=== PATIENT | male | born 1955 | race Caucasian/White ===

== ENCOUNTER → 2016-07-13 | Outpatient (CLI) | payer BC | END | disposition home or self-care (01) | LOC: C.LABBFT 12:43 | PROVIDERS: ATTEND Internal Medicine | DX: Z11.59 Encounter for screening for other viral diseases (principal) ==

== ENCOUNTER 2018-05-10 11:32 | Inpatient (IN) ==
--- NOTE | 2018-05-01 16:35 | PAT Medication Instructions ---
Medication Instructions Date of Service May 01, 2018 Home Medications loratadine 10 mg PO DAILY PRN DO NOT take the morning of surgery loratadine 10 mg PO DAILY PRN Other Notes If you have any questions please call us at [phone] or [phone] or [phone] or [phone]
--- NOTE | 2018-05-02 09:14 | Anesthesiology Consultation ---
Date of Service May 02, 2018 Assessment & Plan (1) Encounter for pre-operative examination: Preop EKG done 05/02/18 at [facility] unconfirmed. Will need to review confirmed EKG AM DOS. Chart Review Chart Review: Acceptable Risk for Surgery and Patient seen in Pre Admission Testing Teaching & Discussion Pre-Anesthesia Teaching/Discussion Notes: Instructed NPO after midnight before surgery,except medications with 15 cc of water. Medication instructions provided according to the PAT guidelines. History Surgery Operation Date: 05/10/18 09:15 Proposed Procedures p Endobronchial Ultrasound, - Ciaran Hyde MD, FACS s Navigational Bronchoscopy with Biopsies - Ciaran Hyde MD, FACS Height/Weight Height: 5 ft 11.5 in Weight: 71.6 kg Allergies Allergy/AdvReac Type Severity Reaction Status Date / Time No Known Allergies Allergy Verified 05/01/18 10:49 Medications Home Medications Medication Instructions Recorded Confirmed Last Taken loratadine 10 mg PO DAILY PRN 05/01/18 05/01/18 Unknown Past Medical History Medical History Ascending aorta dilation "STABLE, MILD" PER 04/[address] Cavitary lung disease Past Surgical History Surgical History History of appendectomy History of tonsillectomy Past Anesthesia History No Hx of Anesthesia Complications and No Family Hx of Anesthesia Complications History of PONV No Motion Sickness Screening History of Motion Sickness: Yes (OCCASIONAL) Social History Smoking Status: Never smoker Do You Dip or Chew Tobacco: No Hx Alcohol Use: Yes alcohol intake frequency: holidays/special occasions only Alcohol Intake Frequency Comment: RARE SOCIAL DRINK Hx Substance Use: No substance use type: does not use Exercise / Class Metabolic Activity II 4-5 Yardwork/Stairs/Walk up hill Review of Systems Prior coughing/congestion not giving patient current issues. Patient denies chest pain, shortness of breath, dyspnea on exertion, wheezing, palpitations. Physical Exam Vital Signs VITALS BP 127/84 P 78 TEMP 97.8 SP02 98%RA RESP 16 PHYSICAL Full neck and c-spine range of motion. Full TMJ range of motion. TMD 3 finger breaths Mallampati Score 2 Dentition: several missing sides/ molars Lungs: clear throughout to auscultation Cardiac: regular rate and rhythm, no murmurs noted Spine: normal Carotid arteries: negative bruit Extremities: no edema Testing Electrocardiogram Date: 05/02/18 Findings: + NSR @ (66 (unconfirmed report)) Other Testing Chest CT= 04/18/18= Tree-in-bud nodules scattered throughout the lungs with multiple cavitary nodules, including a 1.9 x 1.2 cm right apical cavitary nodule. This nodule has slightly decreased in size since CT of March 01, 2018. The majority of nodules are unchanged while a few have improved and at least one has developed. Overall, the appearance favors an infectious or inflammatory process such as atypical mycobacterial infection. Fungal infection, vasculitis or rheumatoid nodules are within the differential but considered less likely. A neoplastic process is also considered less likely but cannot be completely excluded. Interval improvement in mediastinal lymphadenopathy. Stable mild dilatation of the ascending aorta. Laboratory Results 05/02/18 09:16 05/02/18 09:16
[2018-05-02 11:00] LABS: Basophils # (auto) 0.02 K/uL (0-0.2); Basophils % (auto) 0.3 %; Eosinophils # (auto) 0.14 K/uL (0-0.5); Eosinophils % (auto) 2.2 %; Hematocrit (blood only) 45.6 % (42-52); Hemoglobin 15.2 g/dL (14.0-18.0); Immature Granulocytes # (auto) 0.01 K/uL (0.00-0.02); Immature Granulocytes % (auto) 0.2 %; Lymphocytes # (auto) 1.55 K/uL (1.2-3.4); Lymphocytes % (auto) 24.1 %; Mean Corpuscular Hgb Conc 33.3 g/dL (32-36); Mean Corpuscular Volume 89.1 fL (80-100); Mean Platelet Volume 10.2 fL (7.4-10.4); Monocytes # (auto) 0.57 K/uL (0.11-0.59); Monocytes % (auto) 8.9 %; Neutrophils # (auto) 4.15 K/uL (1.4-6.5); Neutrophils % (auto) 64.3 %; Platelet Count 216 K/uL (130-400); RDW Coefficient of Variation 13.5 % (11.5-14.5); RDW Standard Deviation 44.1 fL (36.4-46.3); Red Blood Count 5.12 M/uL (4.7-6.1); White Blood Count 6.44 K/uL (4.8-10.8)
[2018-05-02 11:15] LABS: BUN Creatinine Ratio 19.2 (10-20); Calcium 9.2 mg/dl (8.5-10.1); Creatinine Clr Calc Pharmacy 103.5 ml/min; Est GFR (African American) 113.8; Est GFR (Non-African American) 98.2; Potassium 4.1 mmol/L (3.5-5.1)
[~2018-05-10 11:32] MED LIST: LR 15ML/HR IV SCH
[2018-05-10] MEDS ORDERED: MIDAZOLAM HCL 1 MG/ML 2ML VIAL ONE (12:57)
[2018-05-10] MEDS ORDERED: fentaNYL citrate 100 MCG/2 ML VIAL ONE (12:58)
--- NOTE | 2018-05-10 13:59 | History & Physical Bridge Note ---
Date of Service May 10, 2018 History & Physical Bridge Note I have examined the patient, reviewed the History & Physical and in the interval since the performance of the History & Physical I have noted the following changes of clinical significance: no changes noted
[2018-05-10] MEDS ORDERED: ATROPINE SULFATE 0.1 MG/ML 10ML SYR IV PRN (14:01)
[2018-05-10] MEDS ORDERED: fentaNYL citrate 100 MCG/2 ML VIAL IV PRN (14:01)
[2018-05-10] MEDS ORDERED: ePHEDrine sulfate 50 MG/ML AMP IV PRN (14:01)
[2018-05-10] MEDS ORDERED: HYDROmorphone INJ 2 MG/ML SYR/VIAL IV PRN (14:01)
[2018-05-10] MEDS ORDERED: LIDOCAINE HCL 2% 2 ML VIAL/AMP(20MG/ML) INFIL ONE (14:18)
[2018-05-10] MEDS ORDERED: PROPOFOL IV EMULSION 10 MG/ML 20 ML VIAL IV ONE (14:18)
[2018-05-10] MEDS ORDERED: SUCCINYLCHOLINE CHLORIDE 20 MG/ML 10 ML VIAL ONE (14:18)
[2018-05-10] MEDS ORDERED: DEXAMETHASONE SOD INJ 4 MG/ML VIAL ONE (14:54)
[2018-05-10] MEDS ORDERED: ONDANSETRON INJ 2 MG/ML 2 ML VIAL ONE ×2 (14:54→18:11)
[2018-05-10] MEDS ORDERED: PHENYLEPHRINE HCL 10 MG/ML VIAL ONE (14:54)
[2018-05-10] MEDS ORDERED: CEFAZOLIN 2000MG 2,000 MG/15 ML SYR IV SCH (15:00)
--- NOTE | 2018-05-10 15:26 | Post Operative Brief Note ---
Immediate Post Op Note v1 Date of Surgery May 10, 2018 Pre & Post Diagnosis Operation Date: 05/10/18 12:25 Pre-Op Diagnosis: Cavitary Lesion Right Lung, Mediastinal Adenopathy Post-Op Diagnosis: Cavitary Lesion Right Lung, Mediastinal Adenopathy Procedure Operation Date: 05/10/18 12:25 Actual Procedures p Endobronchial Ultrasound,(Not Applicable) - Ciaran Hyde MD, FACS s Navigational Bronchoscopy with Biopsies(Not Applicable) - Ciaran Hyde MD, FACS Surgeon Ciaran Hyde MD, FACS [employer] Operator Jason Estimated Blood Loss 2 Findings Consistent with Post-Op Diagnosis
[2018-05-10] MEDS ORDERED: CEFAZOLIN 250 MG/ML 1 GM VIAL ONE (15:52)
--- NOTE | 2018-05-10 16:06 | XRay Report ---
XR chest 1V portable HISTORY: Status post bronchoscopy. COMPARISON: Chest 02/13/2018. FINDINGS: The small left pneumothorax. This demonstrates a maximum pleural gap of 2 cm. No right-side d pneumothorax. Scattered nodular densities most pronounced within the right upper lobe persist. The heart is normal in size. No pleural effusions. IMPRESSION: There is a new small left pneumothorax. This finding was called/faxed to the referring physician foll owing dictation. Electronically signed by: Ramon Kline M.D. 05/10/2018 4:05 PM
--- NOTE | 2018-05-10 16:42 | Anesthesiology Progress Note ---
Date of Service May 10, 2018 Anesthesia Post Procedure Vital Signs Vital Signs: Temp Pulse Pulse Resp BP BP Pulse Ox 05/10/18 16:35 36.4 C L 84 19 125/86 92 05/10/18 16:26 86 25 H 106/85 89 L 05/10/18 16:25 90 22 96 05/10/18 16:20 81 25 H 137/94 89 L 05/10/18 16:16 86 16 146/85 H 90 05/10/18 16:15 88 13 92 05/10/18 16:12 36.6 C 88 18 146/85 H 95 05/10/18 16:10 80 26 H 95/83 L 90 05/10/18 16:06 77 27 H 104/81 93 05/10/18 16:05 74 24 96 05/10/18 16:02 70 26 H 97 05/10/18 16:01 75 19 118/87 98 05/10/18 16:00 71 28 H 99 05/10/18 15:56 79 21 136/91 100 05/10/18 15:55 80 29 H 100 05/10/18 15:50 65 17 109/70 99 05/10/18 15:48 61 16 101/67 100 05/10/18 15:47 36.3 C L 61 61 16 101/67 101/67 101 H 05/10/18 15:45 61 19 100 05/10/18 11:57 36.3 C L 76 18 137/92 98 Notes Mental Status: alert / awake / arousable Patient Amnestic to Procedure: Yes Nausea / Vomiting: adequately controlled Pain: adequately controlled Airway Patency, RR, SpO2: stable & adequate BP & HR: stable & adequate Hydration State: stable & adequate Anesthetic Complications: no major complications apparent
[2018-05-10] MEDS ORDERED: LIDOCAINE HCL 1% 20 ML VIAL ONE (17:41)
--- NOTE | 2018-05-10 17:41 | XRay Report ---
XR chest 1V portable HISTORY: 62 years-old Male post op, constant cough acute cough with recent surgery of the left chest COMPARISON: Chest radiograph of same day at 3:50 PM TECHNIQUE: AP view of the chest FINDINGS: Moderate left-sided pneumothorax is increased in size from comparison, now with pleural separation la terally measuring up to 2.8 cm and at the apex measuring up to 2.9 cm, previously 1.7 cm. Cardiomedia stinal and hilar silhouettes are unchanged. Minimal bibasilar densities suggest probable atelectasis. Degenerative changes of the shoulders and spine. IMPRESSION: Moderate sized left pneumothorax has increased in size from comparison. The above report was generated using voice recognition software. It may contain grammatical, syntax o r spelling errors. Electronically signed by: Kain Carpenter M.D. 05/10/2018 5:39 PM
[2018-05-10] MEDS ORDERED: OXYCODONE HCL IR 5 MG TAB (IMMEDIATE RELEASE) PO PRN (18:18)
[2018-05-10] MEDS ORDERED: MoRPHine SULFATE 2 MG/ML CARP IV PRN (18:18)
[2018-05-10] MEDS ORDERED: KETOROLAC TROMETHAMINE 15 MG/ML VIAL IV PRN (18:18)
[2018-05-10] MEDS ORDERED: KETOROLAC TROMETHAMINE 15 MG/ML VIAL ONE (18:20)
--- NOTE | 2018-05-10 18:31 | XRay Report ---
XR chest 1V portable CLINICAL HISTORY: 62 years-old Male presenting with chest tube. TECHNIQUE: Portable upright AP view of the chest was obtained. COMPARISON: 05/10/2018 at 5:31 PM. FINDINGS: Left pleural drain position at the paramediastinal left upper lung. Atherosclerosis of the aortic arc h. Cardiac silhouette top normal in size. Mild pulmonary vascular prominence and significant heteroge neity of lung parenchyma. No focal opacity. Trace left apical pneumothorax is suggested allowing for portable technique, which represents a significant decrease in size from prior. Osseous structures no rmal. Gaseous distention of colon. IMPRESSION: 1. Left pleural drain now in place. Significant decrease in size of the now trace left apical pneumo thorax suggested allowing for portable technique. Electronically signed by: Carlton Pandya M.D. 05/10/2018 6:30 PM
[2018-05-10] MEDS ORDERED: LORATADINE 10 MG TAB PO PRN (19:32)
[2018-05-10] MEDS ORDERED: ONDANSETRON INJ 2 MG/ML 2 ML VIAL IV PRN (19:32)
[2018-05-10] MEDS ORDERED: HYDROmorphone INJ 0.5 MG/0.5 ML SYR IV STA (19:51)
[2018-05-10] MEDS: ACETAMINOPHEN 325 MG TAB PO SCH (20:54)
[2018-05-10] MEDS: DOCUSATE SODIUM 100 MG CAP PO SCH (20:54)
[2018-05-11] MEDS: ACETAMINOPHEN 325 MG TAB PO SCH ×2 (00:10→07:46)
[2018-05-11 05:35] LABS: Hematocrit (blood only) 38.7 % (42-52); Hemoglobin 12.9 g/dL (14.0-18.0); Mean Corpuscular Hgb Conc 33.3 g/dL (32-36); Mean Corpuscular Volume 87.4 fL (80-100); Mean Platelet Volume 9.6 fL (7.4-10.4); Platelet Count 183 K/uL (130-400); RDW Coefficient of Variation 13.6 % (11.5-14.5); RDW Standard Deviation 43.7 fL (36.4-46.3); Red Blood Count 4.43 M/uL (4.7-6.1); White Blood Count 17.73 K/uL (4.8-10.8)
[2018-05-11 05:46] LABS: INR 1.1 (0.9-1.1); Partial Thromboplastin Time 27.2 Seconds (21.0-31.0); Prothrombin Time 10.9 Seconds (9.0-12.0)
[2018-05-11 05:51] LABS: Creatinine Clr Calc Pharmacy 90.3 ml/min; Est GFR (African American) 107.5; Est GFR (Non-African American) 92.7
--- NOTE | 2018-05-11 07:24 | XRay Report ---
XR chest 1V portable HISTORY: 62 years-old Male pneumothorax follow-up study in a patient with left-sided pneumothorax COMPARISON: Chest radiograph 05/10/2018 TECHNIQUE: Portable AP view of the chest FINDINGS: Cardiomediastinal and hilar silhouettes appear unchanged. Mild right hemidiaphragmatic elevation is s table. Stable positioning of the left-sided chest tube. Decreased size of the tiny left apical pneumo thorax, now with pleural separation of 6 mm, previously 10 mm. Mild bilateral interstitial coarsening appears unchanged. Degenerative changes of the shoulders and spine. IMPRESSION: Stable positioning of the left-sided chest tube. Tiny left apical pneumothorax has decrea sed in size from comparison. The above report was generated using voice recognition software. It may contain grammatical, syntax o r spelling errors. Electronically signed by: Kain Carpenter M.D. 05/11/2018 7:23 AM
[2018-05-11] MEDS ORDERED: ENOXAPARIN INJ 40 MG/0.4 ML SYR SQ SCH (09:00)
--- NOTE | 2018-05-11 09:14 | XRay Report ---
XR chest 1V portable HISTORY: 62 years-old Male s/p chest tube removal status post removal of left-sided chest tube COMPARISON: Chest radiograph of same day at 7:10 AM TECHNIQUE: Portable AP view of the chest FINDINGS: Status post removal of the left-sided chest tube. Tiny left apical pneumothorax redemonstrated with o nly a few millimeters of pleural separation. Mild bilateral interstitial coarsening redemonstrated. C ardiac mediastinal and hilar silhouettes are within normal limits. Degenerative changes of the should ers and spine. IMPRESSION: Status post removal of the left-sided chest tube. Tiny left apical pneumothorax appears u nchanged. The above report was generated using voice recognition software. It may contain grammatical, syntax o r spelling errors. Electronically signed by: Kain Carpenter M.D. 05/11/2018 9:13 AM
[2018-05-11] MEDS: DOCUSATE SODIUM 100 MG CAP PO SCH (09:25)
--- NOTE | 2018-05-11 09:56 | Anesthesiology Progress Note ---
Date of Service May 11, 2018 Anesthesia Post Procedure Vital Signs Vital Signs: Temp Pulse Pulse Pulse Resp BP BP 05/11/18 07:45 36.5 C 66 20 05/11/18 05:12 05/11/18 05:11 05/11/18 04:10 05/11/18 03:30 36.6 C 67 18 05/10/18 22:37 36.6 C 90 16 05/10/18 21:43 100 H 05/10/18 21:13 36.6 C 102 H 16 05/10/18 20:13 36.5 C 91 H 18 05/10/18 19:47 36.4 C L 91 H 18 05/10/18 19:10 36.8 C 92 H 22 05/10/18 18:50 36.3 C L 84 22 05/10/18 17:45 103 H 22 110/84 05/10/18 17:15 36.6 C 100 H 22 107/85 05/10/18 16:45 36.6 C 86 22 122/90 05/10/18 16:35 36.4 C L 84 19 125/86 05/10/18 16:26 86 25 H 106/85 05/10/18 16:25 90 22 05/10/18 16:20 81 25 H 137/94 05/10/18 16:16 86 16 146/85 H 05/10/18 16:15 88 13 05/10/18 16:12 36.6 C 88 18 146/85 H 05/10/18 16:10 80 26 H 95/83 L 05/10/18 16:06 77 27 H 104/81 05/10/18 16:05 74 24 05/10/18 16:02 70 26 H 05/10/18 16:01 75 19 118/87 05/10/18 16:00 71 28 H 05/10/18 15:56 79 21 136/91 05/10/18 15:55 80 29 H 05/10/18 15:50 65 17 109/70 05/10/18 15:48 61 16 101/67 05/10/18 15:47 36.3 C L 61 61 16 101/67 101/67 05/10/18 15:45 61 19 05/10/18 11:57 36.3 C L 76 18 137/92 BP Pulse Ox 05/11/18 07:45 118/72 95 05/11/18 05:12 97 05/11/18 05:11 93 05/11/18 04:10 95 05/11/18 03:30 107/66 97 05/10/18 22:37 121/75 93 05/10/18 21:43 94 05/10/18 21:13 121/75 97 05/10/18 20:13 130/85 95 05/10/18 19:47 121/78 95 05/10/18 19:10 119/85 95 05/10/18 18:50 99 05/10/18 17:45 90 05/10/18 17:15 91 05/10/18 16:45 91 05/10/18 16:35 92 05/10/18 16:26 89 L 05/10/18 16:25 96 05/10/18 16:20 89 L 05/10/18 16:16 90 05/10/18 16:15 92 05/10/18 16:12 95 05/10/18 16:10 90 05/10/18 16:06 93 05/10/18 16:05 96 05/10/18 16:02 97 05/10/18 16:01 98 05/10/18 16:00 99 05/10/18 15:56 100 05/10/18 15:55 100 05/10/18 15:50 99 05/10/18 15:48 100 05/10/18 15:47 101 H 05/10/18 15:45 100 05/10/18 11:57 98 Pain Intensity Left Chest: Pain Intensity: 4 Notes Mental Status: alert / awake / arousable and participated in evaluation Patient Amnestic to Procedure: Yes Nausea / Vomiting: adequately controlled Pain: adequately controlled Airway Patency, RR, SpO2: stable & adequate BP & HR: stable & adequate Hydration State: stable & adequate Anesthetic Complications: no major complications apparent and Pt Satisfied with anesthetic care
--- NOTE | 2018-05-11 10:08 | Progress Note ---
DATE: 05/10/2018 REASON FOR ADMISSION: Iatrogenic left pneumothorax. SURGEON: Ciaran Hyde MD SPECIFICS OF PROCEDURE: This is a 62-year-old male with bilateral pulmonary nodules and some mediastinal adenopathy that I performed an endobronchial ultrasound with biopsy as well as a navigational bronchoscopy today on 05/10/2018. This went without incident. The patient was noted to have a small left pneumothorax. He then became more hypoxic requiring oxygen and had a cough. We repeat the x-ray and the pneumothorax is much larger. I have placed a 20-Palestinian chest tube here in the ambulatory surgery unit. The patient will be admitted for observation. For the specifics of the rest of my history and physical, please refer to my office note.
--- NOTE | 2018-05-11 22:08 | Discharge Summary ---
DISCHARGE DIAGNOSES: 1. Iatrogenic left pneumothorax following electromagnetic navigational bronchoscopy. 2. Bilateral pulmonary nodules. 3. Mediastinal adenopathy. HOSPITAL COURSE: This is a very nice 62-year-old who suffers from chronic cough which has become debilitating in the last few months. He has bilateral nodules which may well be inflammatory and some adenopathy. I felt that an endobronchial ultrasound, in particular a navigational bronchoscopy would be helpful if we could get a diagnosis and particularly if we could isolate an organism. He is quite frustrated with his lungs and was quite eager to have a diagnostic procedure performed. On 05/10/2018, the patient underwent an uncomplicated endobronchial ultrasound with biopsy. Also had a navigational bronchoscopy and biopsied an area in the left upper lobe as well as his right upper lobe. We did not get any cancer cells. We did get some lymph nodes on our rapid onsite evaluation from the endobronchial ultrasound. We had very little bleeding. I was surprised to see he had a small pneumothorax on his left chest and when this x-ray was repeated, this pneumothorax was rather large. For this reason, I inserted a 20-Chadian chest tube in the postanesthesia care unit. Pneumothorax resolved. He really did not have an air leak. The following morning, I came by and he looked very good. He had no air leak. I removed his chest tube without difficulty. His x-ray looked quite good. I will discharge him home. I will see him back in the office next week to go over his final culture and biopsy results.
--- NOTE | 2018-05-11 22:18 | Operative Report ---
DATE OF OPERATION: 05/10/2018 PREOPERATIVE DIAGNOSIS: Iatrogenic left pneumothorax. POSTOPERATIVE DIAGNOSIS: Same. PROCEDURE: Insertion of 20-Spanish chest tube. SURGEON: Ciaran Hyde MD RN CALL CENTER: [facility] ANESTHESIA: Local. SPECIFICS OF PROCEDURE: The patient was seated at about a 30-degree position in the stretcher. I anesthetized his anterior chest. After appropriate timeout had been called and the patient signed a consent, we prepped and draped this area and I anesthetized with a 25-gauge needle and 1% Xylocaine. I made a small incision about 8 mm across and I went through this with a larger needle above the rib and anesthetized the intercostal muscles and the pleura. We then got air back and inserted guidewire and removed the needle. Dilator was slid over the guidewire and then removed and then a 20-Spanish chest tube with an inner cannula was slid over this guidewire and then the inner cannula and guidewire removed. This was sutured in place about 16 cm. He had a ramirez of air, but then had a really tiny air leak. We sutured this in place with heavy silk suture. Chest x-ray showed it in position. Antimicrobial dressings were placed around this and the patient was transported up to the third floor for observation. I attest to the content of the Intraoperative Record and any orders documented therein. Any exception s are noted below.
--- NOTE | 2018-05-13 08:34 | Operative Report ---
DATE OF OPERATION: 05/10/2018 PREOPERATIVE DIAGNOSES: 1. Bilateral lung nodules. 2. Mediastinal adenopathy. 3. Chronic productive cough with exacerbations. POSTOPERATIVE DIAGNOSES: 1. Bilateral lung nodules. 2. Mediastinal adenopathy. 3. Chronic productive cough with exacerbations. PROCEDURES: 1. Endobronchial ultrasound with biopsy. 2. Navigational bronchoscopy with biopsy of right upper and left upper lobe masses. SURGEON: Ciaran Hyde MD ANALYTICAL LAB ANALYST: Robert Gomez, registered respiratory therapist. ANESTHESIA: General anesthesia, endotracheal intubation. INDICATION FOR PROCEDURE AND FINDINGS: Deonte Rivero is a 62-year-old male who has never really smoked, who has a history of a productive cough over the last few years which has gotten worse this year. He has had the surgery because quite short of breath. He has been on antibiotics multiple times and recently completed a 28-day course where he did feel a bit better. He has bilateral upper lobe masses as well as some mediastinal adenopathy. He has had no hemoptysis, no weight loss. We still do not have an etiology. I offered him an endobronchial ultrasound with biopsy as well as a navigational bronchoscopy. It is hoped that we could elucidate etiology behind these episodes. DESCRIPTION OF PROCEDURE: The patient was brought to the operating room, laid in supine position. General anesthesia induced and endotracheal intubation was performed. After appropriate timeout had been called and prophylactic antibiotics given, the endobronchial ultrasound was placed through the endotracheal tubes adaptor. First thing it was noted was patient had fairly thick yellow sputum in both bronchial trees. I suctioned this dry fairly easily, but we removed a fair amount of the sputum and sent it for cultures. I ended up irrigating out each of the lobes. I started with the right lower lobe, right middle lobe and right upper lobe and then went over to the left, basilar segments of the lower lobe, superior segment of the lower lobe and lingula, and left upper lobe and irrigated until all were clear of the sputum. Starting at the left, I biopsied the left level 4 lymph nodes several times as well as a left level 10. I then biopsied the level 7 node and then came around and biopsied the right level 10 and right level 4 lymph nodes. We got lymph node material back on many of these with rapid on site evaluation. We had very little bleeding. I then removed the endobronchial ultrasound scope and placed the fiberoptic scope and again closely inspected the airways. There were mildly inflamed, but I saw no endobronchial lesions. After registering the airways, I then used a SuperDimension navigational probe and went first to the right upper lobe mass, we came out to this fairly easily with the guidance system. With the guidance catheter right at the mass, we then removed the navigational probe and placed the radial ultrasound probe to the catheter which had been locked into position. We saw some minor abnormalities, but not the true circumscribed masses we had hoped. I switched this around a couple of times, but did not see anything better or so, I did multiple brushes. I then did fine needle aspirations as well as forceps biopsies and then did washings. We got into very little bleeding with this. I then pulled back in, changed my target to the left upper lobe. This was in the inferior portion of the left lower lobe, right above the fissure. I was able to get out of here fairly easily even though it was fairly peripheral. Again, using the radial ultrasound probe, it could be seen that we were actually right at this mass. I then biopsied this multiple times by using brushes and then the fine needle aspiration and forceps and then irrigated it out. This all went very nicely, we really saw very little in the way of any bleeding. Upon removing the navigational guide, I then irrigated out both lung driscoll, found no further bleeding and the case was concluded. He tolerated it quite well and was extubated and transported to the postanesthesia care unit in stable condition. I attest to the content of the Intraoperative Record and any orders documented therein. Any exception s are noted below.
== END 2018-05-11 12:31 | disposition home or self-care (01) | DRG 167 ==
LOC: ASU 11:32 → 3N 18:13

== ENCOUNTER 2018-09-30 19:53 | Inpatient (IN) ==
[2018-09-30] MEDS ORDERED: SODIUM CHLORIDE 0.9% 1000ML 1,000 ML IV ONE (20:00)
[2018-09-30] MEDS ORDERED: VANCOMYCIN CONSULT ACTIVE PRN ×2 (20:04→23:30)
[2018-09-30] MEDS ORDERED: VANCOMYCIN HCL 1,500 MG in SODIUM CHLORIDE 0.9% 500 ML IV ONE (20:04)
[2018-09-30] MEDS ORDERED: CEFEPIME 2,000 MG/20 ML VIAL IV STA (20:04)
[2018-09-30] MEDS ORDERED: ACETAMINOPHEN 1,000 MG/100 ML VIAL IV STA (20:04)
[2018-09-30 20:21] LABS: Eosinophils # (auto) 0.01 K/uL (0-0.5); Eosinophils % (auto) 0.1 %; Hematocrit (blood only) 42.9 % (42-52); Hemoglobin 14.7 g/dL (14.0-18.0); Immature Granulocytes # (auto) 0.03 K/uL (0.00-0.02); Immature Granulocytes % (auto) 0.2 %; Lymphocytes # (auto) 0.57 K/uL (1.2-3.4); Lymphocytes % (auto) 3.6 %; Mean Corpuscular Hemoglobin 29.6 pg (25-34); Mean Corpuscular Hgb Conc 34.3 g/dL (32-36); Mean Corpuscular Volume 86.5 fL (80-100); Mean Platelet Volume 9.6 fL (7.4-10.4); Monocytes % (auto) 3.7 %; Neutrophils # (auto) 14.83 K/uL (1.4-6.5); Neutrophils % (auto) 92.4 %; Platelet Count 216 K/uL (130-400); RDW Coefficient of Variation 13.4 % (11.5-14.5); RDW Standard Deviation 42.5 fL (36.4-46.3); Red Blood Count 4.96 M/uL (4.7-6.1); White Blood Count 16.04 K/uL (4.8-10.8)
[2018-09-30 20:33] LABS: Partial Thromboplastin Ratio 0.9; Prothrombin Time 10.4 Seconds (9.0-12.0)
[2018-09-30 20:38] LABS: Bilirubin Direct 0.2 mg/dl (0-0.2); Calcium 9.5 mg/dl (8.5-10.1); Creatinine Clr Calc Pharmacy 93.7 ml/min; Est GFR (African American) 110.8; Est GFR (Non-African American) 95.6; Potassium 3.7 mmol/L (3.5-5.1)
[2018-09-30 20:41] LABS: Bilirubin,Total 0.7 mg/dl (0.2-1)
--- NOTE | 2018-09-30 20:51 | XRay Report ---
XR chest 1V portable CLINICAL HISTORY: ro pneumonia dyspnea COMPARISON STUDY: 05/16/2018 FINDINGS: The bones soft tissues and hemidiaphragms are normal. The cardiomediastinal silhouette is n ormal. The lungs are clear. The pulmonary vasculature is normal. Mild emphysematous change. Scattered chronic parenchymal/pleural scarring IMPRESSION: 1. No acute process. 2. Mild emphysematous change. The above report was generated using voice recognition software. It may contain grammatical, syntax or spelling errors. Electronically signed by: Emmett Vegas M.D. 09/30/2018 8:49 PM
--- NOTE | 2018-09-30 22:22 | History & Physical Report ---
Date of Service September 30, 2018 Assessment & Plan (1) Sepsis: 62-year-old male with history of cavitary Pseudomonas pneumonia, hyperlipidemia, ascending aorta dilation, allergic rhinitis, inguinal hernia, BPH presents with fever, chills, nausea, vomiting status post bronchoscopy with bronchoalveolar lavage and transbronchial biopsy today. Concern for sepsis in the setting of Pseudomonas cavitary pneumonia and recent procedure. Sepsis in the setting of cavitary pseudomonal pneumonia and recent bronchoscopy with biopsy and bronchoalveolar lavage Febrile in the ED to 37.8, initially hypothermic to 35.9 WBC 16 Chest x-ray: No acute process. Mild emphysematous change. Scattered chronic parenchymal/pleural scarring Received Vanco and cefepime in the ED with 1 L NS and IV Tylenol Continue Vanco and cefepime On IV fluids normal saline at 125 cc/h Pulmonology consulted On contact precaution Allergic rhinitis Continue home loratidine Code: Full per discussion with patient and sister DVT prophylaxis: SCDs, encourage ambulation, low risk Disposition: MedSurg with telemetry (2) Cavitary lesion of lung: (3) Pseudomonas aeruginosa infection: (4) HLD (hyperlipidemia): (5) Allergic rhinitis: (6) BPH (benign prostatic hyperplasia): History of Present Illness Chief Complaint: Chills/fever/nausea/vomiting Primary Care Provider: Sravani Spangler MD 62-year-old male with history of cavitary Pseudomonas pneumonia, hyperlipidemia, ascending aorta dilation, allergic rhinitis, inguinal hernia, BPH presents with fever, chills, nausea, vomiting status post bronchoscopy with bronchoalveolar lavage and transbronchial biopsy today. Reports after anesthesia he woke up with chills and felt tired afterwards he had some cereal and applesauce which he vomited. His sister took his temperature which was 102.6. He tried drinking some water because he was really thirsty but was unab le to keep that down as well so he returned to the emergency room as instructed for concern of any fever postprocedure. At time of evaluation he reports improvement in chills but continues to feel hot. He is not short of breath at baseline and only becomes short of breath when he goes up a flight of labs which is his baseline at this point. Denies any headache, lightheadedness, chest pain, abdominal pain, constipation, diarrhea dysuria, hematuria, hematochezia, melena. Denies ever smoking tobacco. Occasionally uses marijuana and social alcohol use. EXTENSIVE HISTORY PER CHART REVIEW: Today: had fiberoptic bronchoscopy with bronchoalveolar lavage with and without transbronchial biopsy. Per note: Right upper lobe cavitary pneumonia with thickened cavity (the cavity size has not changed) and other micronodular opacities involving the right upper lobe. Suspect recurrent pseudomonas infection. History per pulmonology note from 09/30/18: 08/28/2018 evaluated by pulmonology for abnormal CT the chest with multiple cavitary lesion. Biopsy by Dr. Hyde demonstrated Pseudomonas. He was instructed to continue follow-up with Infectious Disease. CT of the chest to be repeated in 3 months with follow-up in the office. 08/01/2018: CT of the chest without contrast obtained due to history of pulmonary nodule with cavitary lesion. Slight increase in wall thickness of a cavitary lesion right pulmonary apex. Maximum dimension is 1.7 cm which is essentially unchanged from the prior study. Diffuse parenchymal nodularity is stable with no significant interval change. Scattered regions of peribronchial thickening. Unchanged minimal basilar nodularity. Right middle lobe nodular density has developed currently measuring 1 cm. Additional anterior right middle lobe nodule has remained stable. Mediastinal adenopathy is remain stable. The patient was referred to thoracic surgery at his last appointment and taken to the operating room by Dr. Hyde on 05/10/2018 for bronchoscopy. Fungal and AFB smears are negative. Routine cultures grew out Pseudomonas resistant to Cipro and intermediate to Levaquin. He has been evaluated by Dr. Abebe in Infectious Disease on 05/17/2018. Recommendation for treatment is IV antibiotics of cefepime 1 gram twice daily for total of 14 days to start once insurance approval is obtained. 04/18/2018: CT of the chest without contrast was obtained and continues to demonstrate tree-in-bud nodules scattered throughout the lungs with multiple cavitary nodules, including a 1.9 x 1.2 cm right apical cavitary nodule. There is slight decrease in size since CT of 03/01/2018. The majority of nodules are unchanged with a few improved and at least 1 has developed. There is interval improvement noted in mediastinal lymphadenopathy. 04/05/2018: Fungitell and serum Aspergillus laboratory testing was obtained and were negative. PFT 04/05/2018: FVC: 4.79/91 % (2 PERCENT CHANGE), FEV1: 3.82/72 % (NO CHANGE), FEV1/FVC: 79 %/80 % (NO CHANGE), 25-75 %: 3.79/40 % (NO CHANGE), RV: 2.56/175 %, T.09/124 %, RV/T %/132 %, DLCO: 106 %, dL/VA: 109 % 03/05/2018: Extensive laboratory testing to include vasculitis panel, tuberculosis serology, cryptococcal antigens, Aspergillus antibodies, CBC with diff, CMP, PT/PTT/INR, blood culture was obtained. The only abnormalities noted were ESR of 45 and CRP of 1.05. The patient presented acutely to his PCP on 01/21/2018 with complaints of cough and fever for approximately 1 week. A chest x-ray was obtained on 01/21/2018 and demonstrated multifocal irregular nodular opacities in the right apex and lingula. The patient was treated with Levaquin 500 milligrams x7 days for community-acquired pneumonia. A repeat chest x-ray was obtained 02/13/2018 that was unchanged from previous. A follow-up chest CT without IV contrast was obtained on 03/04/2018 that demonstrated extensive/miliary nodularity throughout both lungs some of which demonstrate a tree-in-bud configuration. The largest nodules demonstrate central cavitation. PFT 07/11/2010: FVC: 4.99/97 % (2 percent change), FEV1: 3.40/84 % (3 percent change), FEV1/FVC: 68 %/87 % (2 percent change), 25-75 %: 2.17/57 % (5 percent change). This was read by Dr. Shirley as mild obstruction with no improvement in flow after bronchodilator with normal volumes. Allergies Allergy/AdvReac Type Severity Reaction Status Date / Time thimerosal Allergy Mild Redness of Verified 09/30/18 10:14 Skin Home Medications Home Medications Medication Instructions Recorded Confirmed Type loratadine 10 mg PO DAILY PRN 05/01/18 09/30/18 History Past Med/Surg History Medical History Ascending aorta dilation "STABLE, MILD" PER 04/[address] Cavitary lung disease Pseudomonas pneumonia Surgical History History of appendectomy History of tonsillectomy Family History Other No pertinent family history in first degree relatives Social History Preferred Language: Latvian Communication Ability: Effective Adjunct Professor Required: No Beliefs That Will Affect Care: None Current Living Situation: Alone Other Information That Helps Us Care for You: No Feels Safe at Home: Yes Safety Concerns: Feels Safe At This Time Smoking Status: Never smoker Second Hand Exposure: Yes (ON/OFF IN DIFFERENT SITUATIONS, PLAYS IN BAND AT BARS) ; Hx Alcohol Use: No Hx Substance Use: No Review of Systems Review of Systems: As per HPI Physical Exam Physical Exam: General: In NAD Neuro: A&O x 4 HEENT: dry mucous membranes Pulm: CTAB equal breath sounds bilaterally CV: RRR, no m/r/g Abdomen:+BS, no TTP in all quadrants, non-distended LE: no LE edema, no calf TTP Results & Data Vital Signs (Past 12 Hours) Vital Signs Temp Pulse Pulse Resp BP BP Pulse Ox 09/30/18 21:24 36.9 C 95 H 16 122/74 96 09/30/18 21:00 92 H 16 94 09/30/18 20:53 99 H 16 124/76 95 09/30/18 19:54 37.8 C H 117 H 20 124/74 92 Laboratory Results Abnormal lab results 09/30/18 09/30/18 Range/Units 20:10 20:10 WBC 16.04 H (4.8-10.8) K/uL Immature Gran # (Auto) 0.03 H (0.00-0.02) K/uL Neut # (Auto) 14.83 H (1.4-6.5) K/uL Lymph # (Auto) 0.57 L (1.2-3.4) K/uL [place] # (Auto) 0.60 H (0.11-0.59) K/uL Glucose 111 H (70-99) mg/dl AST 12 L (15-37) U/L Diagnostic Findings XR chest 1V portable CLINICAL HISTORY: ro pneumonia dyspnea COMPARISON STUDY: 05/16/2018 FINDINGS: The bones soft tissues and hemidiaphragms are normal. The cardiomediastinal silhouette is normal. The lungs are clear. The pulmonary vasculature is normal. Mild emphysematous change. Scattered chronic parenchymal/pleural scarring IMPRESSION: 1. No acute process. 2. Mild emphysematous change. Medications Administered Current Inpatient Medications Vancomycin HCl 1,500 mg/ (Sodium Chloride) 530 mls @ 200 mls/hr IV NOW ONE Stop: 09/30/18 22:42 Last Admin: 09/30/18 21:21 Dose: 200 mls/hr Documented by: Miscellaneous Information (Consult) 1 ea N/A UD PRN PRN Reason: Consult Stop: 10/30/18 20:03 Code Status & VTE Plan Code Status Full VTE Prophylaxis Plan VTE Prophylaxis will be ordered: Yes Supervising Physician Co-Signing Physician Notes Patient seen and examined, chart reviewed, case discussed with Dr. Coe and I agree wtih her assessment and plan as above. Briefly, patient is a 62yo male with history of cavitary Pseudomonas PNA s/p bronchoscopy performed earlier prior to admission presenting with fever/chills/nausea. On exam his is afebrile, HD stable Chronically ill in appearance, thin HEENT - NC/AT, PERRL, MMM, neck supple Heart - +S1/S2, regular Lungs - CTA Abd - +BS, soft, NT/ND Ext - no edema Labs and images reviewed Assessment/Plan: 62yo C male with cavitary Pseudomonas PNA presenting with fever/chills/nausea after bronchoscopy -Adm to medical floor -Follow cultures -Antibiotics with Vanc and Cefepime -IVF -Pulmonary consultation Remainder of plan as above PG Care Time/CCT Total # of Minutes Spent Total Time Spent with Patient: Total time spent is greater than 50% in coordination of care (as documented) at patient's floor/unit and/or counseling patient: Resident Activity Tracking Resident Involvement: Resident Care Provided Care Provided: Adult Hospital Medicine
--- NOTE | 2018-09-30 22:39 | Emergency Department Note ---
Entered by Padmini Garvey acting as a scribe for Sha Gaytan History of Present Illness General Chief complaint: Illness Stated complaint: 102.6 FEVER,CHILLS,VOMITING Time Seen by Provider: 09/30/18 19:58 Source: patient History of Present Illness Onset (ago): hour(s) (7) Location: head (general) Pain Consistency: + other (persistent) Quality: + other (fever) Associated symptoms: + cough and + nausea/vomiting; no chest pain The patient is a 62 year old male who presents to the Emergency Room with complaints of a persistent fever that began 7 hours ago. The patient reports that he has a cough which also began today. He states that he has nausea and vomiting. He denies any chest pain. He reports that he had a bronchoscopy earlier today. Home Medications Home Medications Medication Instructions Recorded Confirmed Type loratadine 10 mg PO DAILY PRN 05/01/18 09/30/18 History Allergies Allergy/AdvReac Type Severity Reaction Status Date / Time thimerosal Allergy Mild Redness of Verified 09/30/18 10:14 Skin Past Med/Surg History Medical History Ascending aorta dilation "STABLE, MILD" PER 04/[address] Cavitary lung disease Pseudomonas pneumonia Surgical History History of appendectomy History of tonsillectomy Family History Other No pertinent family history in first degree relatives Social History Preferred Language: Spanish Communication Ability: Effective Toilet And Laundry Soap Supervisor Required: No Beliefs That Will Affect Care: None Current Living Situation: Alone Feels Safe at Home: Yes Smoking Status: Never smoker Second Hand Exposure: Yes (ON/OFF IN DIFFERENT SITUATIONS, PLAYS IN BAND AT BARS) ; Hx Alcohol Use: Yes Hx Substance Use: No Review of Systems See HPI for pertinent positives & negatives. and A total of 10 systems reviewed and were otherwise negative Physical Exam Vital Signs Vital Signs - 24 hr 09/30/18 19:54 09/30/18 20:53 09/30/18 21:00 Temperature 37.8 C H Temperature Source Oral Sepsis Recent Fever Within 48 Hours No Sepsis Action Taken by Nursing No Action Required Pulse Rate 117 H 92 H Pulse Rate [Right Finger] 99 H Pulse Rhythm Regular Regular Pulse Rhythm [Right Finger] Regular Pulse Strength Normal Pulse Strength [Right Finger] Normal Respiratory Rate 20 16 16 Respiratory Effort / Characteristics Non-Labored Spontaneous Non-Labored Respiratory Depth Normal Normal Respiratory Pattern Regular Blood Pressure 124/74 Blood Pressure [Right Arm] 124/76 Blood Pressure Mean 90 Blood Pressure Mean [Right Arm] 92 Blood Pressure Position Sitting Blood Pressure Position [Right Arm] Lying Pulse Oximetry 92 95 94 Oxygen Delivery Method Room Air Room Air Nasal Cannula Oxygen Flow Rate 2 09/30/18 21:24 Temperature 36.9 C Temperature Source Oral Sepsis Recent Fever Within 48 Hours Sepsis Action Taken by Nursing Pulse Rate Pulse Rate [Right Finger] 95 H Pulse Rhythm Pulse Rhythm [Right Finger] Regular Pulse Strength Pulse Strength [Right Finger] Normal Respiratory Rate 16 Respiratory Effort / Characteristics Non-Labored Respiratory Depth Normal Respiratory Pattern Regular Blood Pressure Blood Pressure [Right Arm] 122/74 Blood Pressure Mean Blood Pressure Mean [Right Arm] 90 Blood Pressure Position Blood Pressure Position [Right Arm] Lying Pulse Oximetry 96 Oxygen Delivery Method Room Air Oxygen Flow Rate GENERAL: He is oriented to person, place, and time. He appears well-developed and well-nourished. He does not appear distressed. HENT: Exam performed. - Head: Normocephalic and atraumatic. - Right Ear: External ear normal. No mastoid tenderness. - Left Ear: External ear normal. No mastoid tenderness. - Mouth/Throat: The oropharynx is clear and moist. No trismus in the jaw. No dental abscesses or uvula swelling. No oropharyngeal exudate or tonsillar abscesses. EYES: Conjunctivae and EOM are normal. Pupils are equal, round, and reactive to light. Right eye exhibits no discharge. Left eye exhibits no discharge. No scleral icterus. NECK: Normal range of motion. Neck supple. No JVD present. No spinous process tenderness present. No carotid bruit present. No rigidity. No tracheal deviation and normal range of motion present. No Brudzinski's sign and no Kernig's sign noted. CV: Tachycardiac rate, regular rhythm, normal heart sounds and intact distal pulses. There is no peripheral edema. Palpable radial pulses bue. PULM/CHEST: Patient has bilateral rhonchi. - Chest Wall: He exhibits no tenderness. ABD: The abdomen is soft. Bowel sounds are normal. He has no distension. No mass is present. There is no tenderness. There is no rebound, no guarding, no Kelley's sign and no tenderness at McBurney's point. Rovsig negative. MUSC/SKEL: Normal range of motion. There is no peripheral edema, tenderness or deformity. LYMPH: No cervical adenopathy. NEURO: He is alert and oriented to person, place, and time. He has normal strength. No cranial nerve deficit or sensory deficit. Coordination and gait normal. GCS eye subscore is 4. GCS verbal subscore is 5. GCS motor subscore is 6. Cerebellar tests wnl. SKIN: Skin is warm and dry. He is not diaphoretic. PSYCH: He has a normal mood and affect. Behavior is normal. Judgment and thought content normal. Course 1999: Past medical records reviewed. The patient was evaluated in room B2. A complete history and physical exam was performed. EMR was reviewed and showed that the patient had a bronchoscopy performed by Dr. Ramirez-Pulmonology earlier today. The patient had right upper lobe cavity pneumonia which was thought to be due to pseudomonas infection. The gram stain showed moderate gram negative bacilli, gram positive cocci, and a small amount of gram negative cocci. 2104: The patient's labs show a leukocytosis of 16, but otherwise within normal limits. The patient will be treated with cefepime and vancomycin given the results of the gram stain. [facility] and she agrees to take the patient for further evaluation. Administered Medications Vancomycin HCl 1,500 mg/ (Sodium Chloride) 530 mls @ 200 mls/hr IV NOW ONE Stop: 09/30/18 22:42 Last Admin: 09/30/18 21:21 Dose: 200 mls/hr Documented by: [id number] Discontinued Medications Sodium Chloride (Nss 1000ml) 1,000 mls @ 999 mls/hr IV .Q1H1M ONE Stop: 09/30/18 21:00 Last Admin: 09/30/18 20:45 Dose: 999 mls/hr Documented by: [id number] Acetaminophen (Ofirmev) 1,000 mg in 100 mls @ 400 mls/hr IV NOW STA Stop: 09/30/18 20:18 Last Infusion: 09/30/18 21:01 Dose: 0 mls/hr Documented by: [id number] Admin: 09/30/18 20:45 Dose: 400 mls/hr Documented by: [id number] Cefepime HCl (Maxipime) 2,000 mg in 20 mls @ 5 mls/min IV NOW STA; Protocol Stop: 09/30/18 20:07 Last Admin: 09/30/18 20:45 Dose: 5 mls/min Documented by: [id number] Medical Decision Making Medical Records Attestation: I reviewed the patient's medical records. Home Medications Current Medication List: was personally reviewed by wa Laboratory Data Attestation: I reviewed the patient's lab results. Result diagrams: 09/30/18 20:10 09/30/18 20:10 Lab Results 09/30/18 09/30/18 09/30/18 Range/Units 20:10 20:10 20:10 WBC 16.04 H (4.8-10.8) K/uL RBC 4.96 (4.7-6.1) M/uL Hgb 14.7 (14.0-18.0) g/dL Hct 42.9 (42-52) % MCV 86.5 (80-100) fL MCH 29.6 (25-34) pg MCHC 34.3 (32-36) g/dL RDW Std Deviation 42.5 (36.4-46.3) fL RDW Coeff of Aaron 13.4 (11.5-14.5) % Plt Count 216 (130-400) K/uL MPV 9.6 (7.4-10.4) fL Immature Gran % (Auto) 0.2 % Neut % (Auto) 92.4 % Lymph % (Auto) 3.6 % [place] % (Auto) 3.7 % Eos % (Auto) 0.1 % Baso % (Auto) 0.0 % Immature Gran # (Auto) 0.03 H (0.00-0.02) K/uL Neut # (Auto) 14.83 H (1.4-6.5) K/uL Lymph # (Auto) 0.57 L (1.2-3.4) K/uL [place] # (Auto) 0.60 H (0.11-0.59) K/uL Eos # (Auto) 0.01 (0-0.5) K/uL Baso # (Auto) 0.00 (0-0.2) K/uL PT 10.4 (9.0-12.0) Seconds INR 1.0 (0.9-1.1) APTT 24.0 (21.0-31.0) Seconds PTT Ratio 0.9 Sodium 142 (136-145) mmol/L Potassium 3.7 (3.5-5.1) mmol/L Chloride 107 (98-107) mmol/L Carbon Dioxide 29 (21-32) mmol/L Anion Gap 6.0 (3-11) BUN 16 (7-18) mg/dl Creatinine 0.79 (0.6-1.4) mg/dl Est Cr Clr Drug Dosing 93.7 ml/min Est GFR ( Amer) 110.8 Est GFR (Non-Af Amer) 95.6 BUN/Creatinine Ratio 20.0 (10-20) Glucose 111 H (70-99) mg/dl Lactate (0.4-2.0) mmol/L Calcium 9.5 (8.5-10.1) mg/dl Total Bilirubin 0.7 (0.2-1) mg/dl Direct Bilirubin 0.2 (0-0.2) mg/dl AST 12 L (15-37) U/L ALT 21 (12-78) U/L Alkaline Phosphatase 68 (45-117) U/L Total Protein 8.0 (6.4-8.2) gm/dl Albumin 4.0 (3.4-5.0) gm/dl Lipase 113 (73-393) U/L 09/30/ Range/Units 20:30 WBC (4.8-10.8) K/uL RBC (4.7-6.1) M/uL Hgb (14.0-18.0) g/dL Hct (42-52) % MCV (80-100) fL MCH (25-34) pg MCHC (32-36) g/dL RDW Std Deviation (36.4-46.3) fL RDW Coeff of Aaron (11.5-14.5) % Plt Count (130-400) K/uL MPV (7.4-10.4) fL Immature Gran % (Auto) % Neut % (Auto) % Lymph % (Auto) % [place] % (Auto) % Eos % (Auto) % Baso % (Auto) % Immature Gran # (Auto) (0.00-0.02) K/uL Neut # (Auto) (1.4-6.5) K/uL Lymph # (Auto) (1.2-3.4) K/uL [place] # (Auto) (0.11-0.59) K/uL Eos # (Auto) (0-0.5) K/uL Baso # (Auto) (0-0.2) K/uL PT (9.0-12.0) Seconds INR (0.9-1.1) APTT (21.0-31.0) Seconds PTT Ratio Sodium (136-145) mmol/L Potassium (3.5-5.1) mmol/L Chloride (98-107) mmol/L Carbon Dioxide (21-32) mmol/L Anion Gap (3-11) BUN (7-18) mg/dl Creatinine (0.6-1.4) mg/dl Est Cr Clr Drug Dosing ml/min Est GFR ( Amer) Est GFR (Non-Af Amer) BUN/Creatinine Ratio (10-20) Glucose (70-99) mg/dl Lactate 1.0 (0.4-2.0) mmol/L Calcium (8.5-10.1) mg/dl Total Bilirubin (0.2-1) mg/dl Direct Bilirubin (0-0.2) mg/dl AST (15-37) U/L ALT (12-78) U/L Alkaline Phosphatase (45-117) U/L Total Protein (6.4-8.2) gm/dl Albumin (3.4-5.0) gm/dl Lipase (73-393) U/L Imaging Data Radiologist's Impression: Radiology results as stated below per my review and the radiologist's interpretation: XR chest 1V portable CLINICAL HISTORY: ro pneumonia dyspnea COMPARISON STUDY: 05/16/2018 FINDINGS: The bones soft tissues and hemidiaphragms are normal. The cardiomediastinal silhouette is normal. The lungs are clear. The pulmonary vasculature is normal. Mild emphysematous change. Scattered chronic parenchymal/pleural scarring IMPRESSION: 1. No acute process. 2. Mild emphysematous change. The above report was generated using voice recognition software. It may contain grammatical, syntax or spelling errors. Electronically signed by: Emmett Vegas M.D. 09/30/2018 8:49 PM Blood Pressure Blood Pressure Findings: Normal blood pressure MDM Narrative 1999: Past medical records reviewed. The patient was evaluated in room B2. A complete history and physical exam was performed. EMR was reviewed and showed that the patient had a bronchoscopy performed by Dr. Ramirez-Pulmonology earlier today. The patient had right upper lobe cavity pneumonia which was thought to be due to pseudomonas infection. The gram stain showed moderate gram negative bacilli, gram positive cocci, and a small amount of gram negative cocci. 2103: The patient's labs show a leukocytosis of 16, but otherwise within normal limits. The patient will be treated with cefepime and vancomycin given the resul ts of the gram stain. I consulted with Crystal Rocha[facility] Hospitalist and she agrees to take the patient for further evaluation. Impression & Plan Pneumonia Discharge Plan Visit Data Chief Complaint: Illness Stated Complaint: 102.6 FEVER,CHILLS,VOMITING ED Provider: Sha Gayatn Discharge Problem: Pneumonia Patient Disposition: Being Evaluated by Hospitalist Forms Stand Alone Forms: My [facility] Prescriptions Prescriptions: No Action loratadine 10 mg Tablet 10 mg PO DAILY PRN (Reason: Allergy Symptoms) RF: 0 Referrals Referrals: Sravani Spangler MD [Primary Care Provider] - Discharge Problem: Pneumonia Qualifiers: Pneumonia type: due to Pseudomonas Laterality: right Lung location: upper lobe of lung Qualified Code(s): J15.1 - Pneumonia due to Pseudomonas The scribe's documentation has been prepared under my direction and personally reviewed by me in its entirety. I confirm that the note above accurately reflects all work, treatment, procedures, and medical decision making performed by me.
[2018-09-30] MEDS ORDERED: ACETAMINOPHEN 325 MG TAB PO PRN (23:30)
[2018-09-30] MEDS ORDERED: ONDANSETRON INJ 2 MG/ML 2 ML VIAL IV PRN (23:30)
[2018-09-30] MEDS ORDERED: LORATADINE 10 MG TAB PO PRN (23:30)
[2018-10-01 06:09] LABS: Basophils # (auto) 0.02 K/uL (0-0.2); Basophils % (auto) 0.1 %; Eosinophils # (auto) 0.04 K/uL (0-0.5); Eosinophils % (auto) 0.2 %; Hematocrit (blood only) 37.1 % (42-52); Hemoglobin 12.8 g/dL (14.0-18.0); Immature Granulocytes # (auto) 0.05 K/uL (0.00-0.02); Immature Granulocytes % (auto) 0.3 %; Lymphocytes # (auto) 1.95 K/uL (1.2-3.4); Lymphocytes % (auto) 10.3 %; Mean Corpuscular Hemoglobin 30.1 pg (25-34); Mean Corpuscular Hgb Conc 34.5 g/dL (32-36); Mean Corpuscular Volume 87.3 fL (80-100); Mean Platelet Volume 9.3 fL (7.4-10.4); Monocytes # (auto) 1.09 K/uL (0.11-0.59); Monocytes % (auto) 5.8 %; Neutrophils # (auto) 15.78 K/uL (1.4-6.5); Neutrophils % (auto) 83.3 %; Platelet Count 192 K/uL (130-400); RDW Coefficient of Variation 13.6 % (11.5-14.5); RDW Standard Deviation 43.6 fL (36.4-46.3); Red Blood Count 4.25 M/uL (4.7-6.1); White Blood Count 18.93 K/uL (4.8-10.8)
--- NOTE | 2018-10-01 06:12 | Pharmacy Report ---
Pharmacy Abx Initial Consult - Date of Service October 01, 2018 - Pharmacy Dosing Scope Date of Consult: 10/01/18 Consultation requested by: Dr. Coe Pharmacy is consulted to continue Vancomycin IV dosing therapy, order appropriate labs and adjust drug dose/frequency. - Subjective The patient is a 62 year old M admitted on 09/30/18 22:08 with history of cavitary Pseudomonas pneumonia, that presents with fever, chills and N&V. He is recent post bronchoscopy with biopsy. Dr. Coe continued both Cefepime and Vancomycin IV started in the ED as she feels he is septic at this time. Pharmacy will continue to dose Vancomycin. - Objective Height: 5 ft 11.5 in Weight: 68.6 kg Vital Signs (Past 12hrs): Vital Signs Temp Pulse Pulse Resp BP BP Pulse Ox 10/01/18 04:33 36.7 C 73 20 96/52 L 96 10/01/18 00:05 36.8 C 78 79 16 98/63 L 94 09/30/18 23:14 36.8 C 86 16 165/75 H 95 09/30/18 21:24 36.9 C 95 H 16 122/74 96 09/30/18 21:00 92 H 16 94 09/30/18 20:53 99 H 16 124/76 95 09/30/18 19:54 37.8 C H 117 H 20 124/74 92 Lab Results (24hrs): Laboratory Tests (24 Hours) 09/30/18 09/30/18 20:10 20:10 WBC 16.04 H Neut # (Auto) 14.83 H Creatinine 0.79 Est Cr Clr Drug Dosing 93.7 Micro Results: 09/30/18 20:39 Aerobic Blood Culture - Pending Blood Anaerobic Blood Culture - Pending 09/30/18 20:23 Aerobic Blood Culture - Pending Blood Anaerobic Blood Culture - Pending - Assessment & Plan Assessment 62 year old M with sepsis (Lung source) Plan Vancomycin IV * Estimated PK Parameters: Vd 0.70 L/kg, Fili 0.08 hr-1, t1/2 8.66 hr * Loading dose: 1500 mg (~22 mg/kg) * Maintenance dose: 1000 mg IV (~15 mg/kg) every 10 hours * Goal trough level : 15 to 20 mcg/mL * Trough level ordered prior to 1400 dose on 10/02/18 Pharmacy will continue to follow and will adjust dose/frequency as necessary. Thank you.
[2018-10-01 06:48] LABS: BUN Creatinine Ratio 22.8 (10-20); Calcium 8.2 mg/dl (8.5-10.1); Creatinine Clr Calc Pharmacy 111.2 ml/min; Est GFR (African American) 119.3; Est GFR (Non-African American) 102.9; Potassium 3.8 mmol/L (3.5-5.1)
[2018-10-01] MEDS ORDERED: VANCOMYCIN HCL 1,000 MG in SODIUM CHLORIDE 0.9% 250 ML IV SCH (08:00)
[2018-10-01] MEDS: CEFEPIME 1,000 MG in SYRINGE 0 ML IV SCH ×2 (08:00→20:14)
[2018-10-01] MEDS ORDERED: SODIUM CHLORIDE 0.65% NA SOLN 45 ML (OCEAN) ONE ×2 (08:21→08:34)
--- NOTE | 2018-10-01 10:36 | Pulmonary Consultation ---
Date of Consultation October 01, 2018 Assessment & Plan (1) Cavitary lesion of lung: Impression: 62-year-old male with fairly diffuse bronchiectasis of unclear etiology. He is now colonized by pseudomonas. He is status post bronchoscopy yesterday which resulted in fever requiring admission to the hospital. He is currently on cefepime and vancomycin. Recommendations: 1. Exacerbation of bronchiectasis with Pseudomonas: Would continue cefepime for now. Discontinue vancomycin as he has no evidence of MRSA. I do not believe he has pneumonia, rather exacerbation of his bronchiectasis. Inhaled tobramycin 14 days on and 14 days off may be appropriate. 2. Extensive bronchiectasis: Etiology unclear. We will check HIV, IgE, and immunoglobulins as well as mutations for cystic fibrosis. Additional evaluation will depend on results of those studies. He has had ANCA's performed previously which were negative. He does need aggressive pulmonary toilet and will start hypertonic saline as well as a flutter valve. 3. Cavitary upper lobe lung lesion. This is not significantly changed over time but continued radiographic surveillance is required. My suspicion for malignancy is somewhat low and would favor an inflammatory/infectious etiology. Continued pulmonary follow-up recommended. (2) Pneumonia: Laterality: right Lung location: upper lobe of lung Pneumonia type: due to Pseudomonas Qualified Code(s): J15.1 - Pneumonia due to Pseudomonas (3) Pseudomonas aeruginosa infection: (4) Bronchiectasis: History of Present Illness Attending Physician: Sarita Mejia MD History of Present Illness History is obtained from review the electronic medical record as well as discussion with the patient at bedside. The case was discussed previously with Dr. Campos. The patient is a very pleasant 62-year-old male with a trivial history of tobacco exposure. He states that his respiratory issues began several years ago. He noticed that he was coughing green phlegm. He did not have any hemoptysis. He does relate a prior history of pneumonia back in his 20s but does not really recall frequent respiratory or sinus infections. He was referred to pulmonary and underwent a bronchoscopy in May. The cultures demonstrated Pseudomonas. CT scan at that time demonstrated a cavitary lesion in the right apex as well as multiple tree-in-bud nodular opacities with significant lower lobe middle lobe and lingular bronchiectasis. The patient was seen by infectious disease and placed on a course of antibiotics. He states that he felt better but did not have significant radiographic resolution. He was referred for repeat bronchoscopy which was performed on Sunday. He returned home and felt more sick with some weakness and had a fever to 102 which prompted return to the emergency room. Chest x-ray demonstrated no acute change but the patient was admitted to the hospital with a diagnosis of pneumonia, rule out sepsis and placed on empiric cefepime and vancomycin. He is coughing and expectorating small amounts of green phlegm. He does not have any chest pain. He did experience some nausea and one episode of vomiting yesterday but the symptoms have resolved. The patient does not relate a family history of structural lung disease. He has no children. He has no history of IV drug abuse or other HIV factors but was sexually active up until several years ago. He does not believe he is ever had an HIV test performed previously. He does not relate a history of skin infections. He lives in a house and does note that his basement tends to flood frequently. There is significant mold in his basement. He does not have a hot tub or air conditioner. No exotic pets at home. He currently works as a musician and results engineer. He did have significant secondhand exposure of tobacco smoke while working performing music. He rarely smokes marijuana. He does not give a history of sinus problems or recurrent sinus infections. His 12 point review of systems was completed and is negative except as noted above. Allergies Allergy/AdvReac Type Severity Reaction Status Date / Time thimerosal Allergy Mild Redness of Verified 09/30/18 10:14 Skin Home Medications Home Medications Medication Instructions Recorded Confirmed Type loratadine 10 mg PO DAILY PRN 05/01/18 09/30/18 History Patient History Medical History Ascending aorta dilation "STABLE, MILD" PER 04/[address] Cavitary lung disease Pseudomonas pneumonia Surgical History History of appendectomy History of tonsillectomy Family History Other No pertinent family history in first degree relatives Social History Preferred Language: Tanzanian Communication Ability: Effective Chief Physical Therapist Required: No Beliefs That Will Affect Care: None Current Living Situation: Alone Other Information That Helps Us Care for You: No Feels Safe at Home: Yes Safety Concerns: Feels Safe At This Time Smoking Status: Never smoker Second Hand Exposure: Yes (ON/OFF IN DIFFERENT SITUATIONS, PLAYS IN BAND AT BARS) ; Hx Alcohol Use: No Hx Substance Use: No Review of Systems Constitutional: no fever, no chills, no sweats, no fatigue and no weight loss Ear, Nose, Mouth, Throat: no nasal congestion, no nasal discharge and no epistaxis Respiratory: no cough, no dyspnea and no hemoptysis Cardiovascular: no chest pain with activity, no palpitations and no edema Gastrointestinal: no abdominal pain, no nausea, no vomiting and no dysphagia Musculoskeletal: no joint pain and no myalgia Integumentary: no rash and no lesions Neurologic: no generalized weakness, no tingling, no paresthesia, no dizziness and no syncope Psychiatric: no anxiety Endocrine: no polydipsia and no cold intolerance Hematologic / Lymphatic: no easy bleeding and no lymphadenopathy Physical Exam Constitutional: WD/WN, vitals as above Neck: trachea midline, no thyromegaly Respiratory: normal respiratory effort, lungs clear to auscultation Cardiovascular: RRR, no murmur, no edema Gastrointestinal (Abdomen): normal bowel sounds, soft, nontender, no hepatosplenomegaly Musculoskeletal: Extremities: extremities normal to inspection Skin: no rashes, warm and dry Neurologic: Nonfocal exam Lymphatic: no cervical lymphadenopathy Results & Data Vital Signs (Past 12 Hours) Vital Signs Temp Pulse Pulse Resp BP BP Pulse Ox 10/01/18 07:28 67 10/01/18 07:08 36.7 C 73 18 104/67 95 10/01/18 04:33 36.7 C 73 20 96/52 L 96 10/01/18 00:05 36.8 C 78 79 16 98/63 L 94 09/30/18 23:14 36.8 C 86 16 165/75 H 95 Laboratory Results 10/01/18 05:44 10/01/18 05:44 Prior bronchoscopies demonstrated Pseudomonas which was pansensitive. Diagnostic Findings Chest imaging independently reviewed including prior CT scans. XR chest 1V portable CLINICAL HISTORY: ro pneumonia dyspnea COMPARISON STUDY: 05/16/2018 FINDINGS: The bones soft tissues and hemidiaphragms are normal. The cardiomediastinal silhouette is normal. The lungs are clear. The pulmonary vasculature is normal. Mild emphysematous change. Scattered chronic p arenchymal/pleural scarring IMPRESSION: 1. No acute process. 2. Mild emphysematous change. Prior PFTs demonstrated mild airflow obstruction without significant bronchodilator response. PG Care Time/CCT Total # of Minutes Spent Total Time Spent with Patient: Total time spent is greater than 50% in coordination of care (as documented) at patient's floor/unit and/or counseling patient:
[2018-10-01 12:15] LABS: Immunoglobulin M 33.9 mg/dl (40-230)
--- NOTE | 2018-10-01 18:02 | Family Medicine Progress Note ---
Date of Service October 01, 2018 Assessment & Plan (1) Sepsis: 62-year-old male with history of cavitary Pseudomonas pneumonia, hyperlipidemia, ascending aorta dilation, allergic rhinitis, inguinal hernia, BPH presents with fever, chills, nausea, vomiting status post bronchoscopy with bronchoalveolar lavage and transbronchial biopsy. Sepsis in the setting of cavitary pseudomonal pneumonia and recent bronchoscopy with biopsy and bronchoalveolar lavage -Continue Cefepime and will start tobramycin per pulmonology recs. Vanc d/c -gram neg rods growing on recent bronch specimen -workup in place to determine underlying causes per pulm -will trend fever curve -appreciate pulm recs Allergic rhinitis Continue home loratidine Code: Full DVT prophylaxis: SCDs, encourage ambulation, low risk Disposition: MedSurg with telemetry (2) Cavitary lesion of lung: (3) Pseudomonas aeruginosa infection: (4) HLD (hyperlipidemia): (5) Allergic rhinitis: (6) BPH (benign prostatic hyperplasia): Supervising Physician Co-Signing Physician Notes Resident Physician Supervision Note: I independently interviewed and examined the patient and verified the andrews history and physical, reviewed labs and image studies, discussed the case with the resident Dr. Valladares and agree with the findings and care plan. Subjective Mr. Elizalde states he feels much better this AM. N/V and appetite resolved. Denies fevers, chills, night sweats, FARNSWORTH, chest pain, SOB, abd pain, diarrhea or constipation Review of Systems Review of Systems: All systems reviewed & are unremarkable except as noted in HPI & below Physical Exam Physical Exam: General: Alert, oriented. No acute distress HEENT: NC/AT, PERRLA, EOMI, oropharynx moist. Chest: Nontender to palpation. CV: RRR, Normal s1, s2. No murmurs appreciated Resp: Breath sounds clear bilaterally,with occasional coarseness. Abdomen: Soft, nontender, nondistended. No guarding. No organomegaly appreciated. Extremities: No edema in lower extremitites bilaterally.. Results & Data Vital Signs (Past 12 Hours) Vital Signs Temp Pulse Pulse Resp BP Pulse Ox 10/01/18 16:00 82 10/01/18 15:19 36.8 C 72 18 119/68 95 10/01/18 11:18 36.4 C L 71 18 119/72 97 10/01/18 07:28 67 10/01/18 07:08 36.7 C 73 18 104/67 95 Laboratory Results Laboratory Results - last 24 hr 09/30/18 09/30/18 09/30/18 20:10 20:10 20:10 WBC 16.04 H RBC 4.96 Hgb 14.7 Hct 42.9 MCV 86.5 MCH 29.6 MCHC 34.3 RDW Std Deviation 42.5 RDW Coeff of Aaron 13.4 Plt Count 216 MPV 9.6 Immature Gran % (Auto) 0.2 Neut % (Auto) 92.4 Lymph % (Auto) 3.6 [place] % (Auto) 3.7 Eos % (Auto) 0.1 Baso % (Auto) 0.0 Immature Gran # (Auto) 0.03 H Neut # (Auto) 14.83 H Lymph # (Auto) 0.57 L [place] # (Auto) 0.60 H Eos # (Auto) 0.01 Baso # (Auto) 0.00 PT 10.4 INR 1.0 APTT 24.0 PTT Ratio 0.9 Sodium 142 Potassium 3.7 Chloride 107 Carbon Dioxide 29 Anion Gap 6.0 BUN 16 Creatinine 0.79 Est Cr Clr Drug Dosing 93.7 Est GFR ( Amer) 110.8 Est GFR (Non-Af Amer) 95.6 BUN/Creatinine Ratio 20.0 Glucose 111 H Lactate Calcium 9.5 Total Bilirubin 0.7 Direct Bilirubin 0.2 AST 12 L ALT 21 Alkaline Phosphatase 68 Total Protein 8.0 Albumin 4.0 Lipase 113 Nasal Screen MRSA (PCR) IgG IgG1 IgG2 IgG3 IgG4 IgA IgM IgE HIV-1 RNA copies/mL HIV-1 RNA logcopies/mL Patient Ethnicity CF Method CF Mutations/Polymorph Cystic Fibrosis Result CF Interpretation CF Reviewed By 09/30/18 10/01/18 10/01/18 20:30 04:30 05:44 WBC 18.93 H RBC 4.25 L Hgb 12.8 L Hct 37.1 L MCV 87.3 MCH 30.1 MCHC 34.5 RDW Std Deviation 43.6 RDW Coeff of Aaron 13.6 Plt Count 192 MPV 9.3 Immature Gran % (Auto) 0.3 Neut % (Auto) 83.3 Lymph % (Auto) 10.3 [place] % (Auto) 5.8 Eos % (Auto) 0.2 Baso % (Auto) 0.1 Immature Gran # (Auto) 0.05 H Neut # (Auto) 15.78 H Lymph # (Auto) 1.95 [place] # (Auto) 1.09 H Eos # (Auto) 0.04 Baso # (Auto) 0.02 PT INR APTT PTT Ratio Sodium Potassium Chloride Carbon Dioxide Anion Gap BUN Creatinine Est Cr Clr Drug Dosing Est GFR ( Amer) Est GFR (Non-Af Amer) BUN/Creatinine Ratio Glucose Lactate 1.0 Calcium Total Bilirubin Direct Bilirubin AST ALT Alkaline Phosphatase Total Protein Albumin Lipase Nasal Screen MRSA (PCR) Negative IgG IgG1 IgG2 IgG3 IgG4 IgA IgM IgE HIV-1 RNA copies/mL HIV-1 RNA logcopies/mL Patient Ethnicity CF Method CF Mutations/Polymorph Cystic Fibrosis Result CF Interpretation CF Reviewed By 10/01/18 10/01/18 10/01/18 05:44 10:45 10:45 WBC RBC Hgb Hct MCV MCH MCHC RDW Std Deviation RDW Coeff of Aaron Plt Count MPV Immature Gran % (Auto) Neut % (Auto) Lymph % (Auto) [place] % (Auto) Eos % (Auto) Baso % (Auto) Immature Gran # (Auto) Neut # (Auto) Lymph # (Auto) [place] # (Auto) Eos # (Auto) Baso # (Auto) PT INR APTT PTT Ratio Sodium 144 Potassium 3.8 Chloride 110 H Carbon Dioxide 27 Anion Gap 7.0 BUN 15 Creatinine 0.66 Est Cr Clr Drug Dosing 111.2 Est GFR ( Amer) 119.3 Est GFR (Non-Af Amer) 102.9 BUN/Creatinine Ratio 22.8 H Glucose 98 Lactate Calcium 8.2 L Total Bilirubin Direct Bilirubin AST ALT Alkaline Phosphatase Total Protein Albumin Lipase Nasal Screen MRSA (PCR) IgG 841.0 Pending IgG1 Pending IgG2 Pending IgG3 Pending IgG4 Pending IgA 226.0 IgM 33.9 L IgE Pending HIV-1 RNA copies/mL Pending HIV-1 RNA logcopies/mL Pending Patient Ethnicity Pending CF Method Pending CF Mutations/Polymorph Pending Cystic Fibrosis Result Pending CF Interpretation Pending CF Reviewed By Pending Medications Administered Home Medications loratadine 10 mg PO DAILY PRN 05/01/18 [History Confirmed 09/30/18] Active Medications Acetaminophen (Tylenol) 650 mg PO Q4H PRN PRN Reason: Pain or Fever Stop: 10/30/18 23:29 Cefepime HCl 1,000 mg/ Syringe 11.3 mls @ 5.5 mls/min IV Q12H [facility]; Protocol Stop: 10/08/18 07:59 Last Admin: 10/01/18 08:00 Dose: 5.5 mls/min Documented by: Loratadine (Claritin) 10 mg PO DAILY PRN PRN Reason: Allergy Symptoms Stop: 10/30/18 23:29 Ondansetron HCl (Zofran) 4 mg IV Q6H PRN PRN Reason: Nausea Stop: 10/30/18 23:29 Sodium Chloride (Sodium Chlor 7% Neb Solution) 4 ml INH BIDR [facility] Stop: 10/31/18 18:59 PG Care Time/CCT Total # of Minutes Spent Total Time Spent with Patient: Total time spent is greater than 50% in coordination of care (as documented) at patient's floor/unit and/or counseling patient:
[2018-10-01] MEDS: SODIUM CHLOR 7% 4 ML NEB INH SCH (22:28)
[2018-10-02] MEDS: SODIUM CHLOR 7% 4 ML NEB INH SCH ×2 (06:59→19:08)
[2018-10-02] MEDS: TOBRAMYCIN SULFATE 300 MG in SYRINGE 0 ML INH SCH ×2 (07:18→19:10)
[2018-10-02] MEDS: CEFEPIME 1,000 MG in SYRINGE 0 ML IV SCH (07:51)
[2018-10-02 08:10] LABS: Basophils # (auto) 0.01 K/uL (0-0.2); Basophils % (auto) 0.1 %; Eosinophils # (auto) 0.19 K/uL (0-0.5); Eosinophils % (auto) 1.8 %; Hemoglobin 13.2 g/dL (14.0-18.0); Immature Granulocytes # (auto) 0.03 K/uL (0.00-0.02); Immature Granulocytes % (auto) 0.3 %; Lymphocytes # (auto) 1.63 K/uL (1.2-3.4); Lymphocytes % (auto) 15.8 %; Mean Corpuscular Hemoglobin 29.6 pg (25-34); Mean Corpuscular Hgb Conc 33.8 g/dL (32-36); Mean Corpuscular Volume 87.4 fL (80-100); Mean Platelet Volume 9.5 fL (7.4-10.4); Monocytes # (auto) 0.75 K/uL (0.11-0.59); Monocytes % (auto) 7.3 %; Neutrophils # (auto) 7.71 K/uL (1.4-6.5); Neutrophils % (auto) 74.7 %; Platelet Count 191 K/uL (130-400); RDW Coefficient of Variation 13.7 % (11.5-14.5); RDW Standard Deviation 43.6 fL (36.4-46.3); Red Blood Count 4.46 M/uL (4.7-6.1); White Blood Count 10.32 K/uL (4.8-10.8)
[2018-10-02 08:50] LABS: Albumin Level 3.3 gm/dl (3.4-5.0); BUN Creatinine Ratio 21.9 (10-20); Calcium 8.9 mg/dl (8.5-10.1); Creatinine Clr Calc Pharmacy 112.4 ml/min; Est GFR (Non-African American) 103.5; Potassium 3.8 mmol/L (3.5-5.1)
[2018-10-02 08:53] LABS: Albumin Globulin Ratio 0.9 (0.9-2); Bilirubin,Total 0.5 mg/dl (0.2-1); Globulin 3.7 gm/dl (2.5-4.0)
[2018-10-02] MEDS ORDERED: CEFEPIME 1,000 MG in SYRINGE 0 ML IV ONE (09:30)
--- NOTE | 2018-10-02 10:54 | Family Medicine Progress Note ---
Date of Service October 02, 2018 Assessment & Plan (1) Bronchiectasis: 62-year-old male with history of cavitary Pseudomonas pneumonia, hyperlipidemia, ascending aorta dilation, allergic rhinitis, inguinal hernia, BPH presents with fever, chills, nausea, vomiting status post bronchoscopy with bronchoalveolar lavage and transbronchial biopsy. Sepsis in the setting of cavitary pseudomonal pneumonia and recent bronchoscopy with biopsy and bronchoalveolar lavage -Continue IV Cefepime and tobramycin nebs -gram neg rods growing on recent bronch specimen- awaiting sensitivities -workup in place to determine underlying causes per pulm-currently neg CMV, HSV, Aspergillus. CF testing and HIV pending. -will continue to trend fever curve. WBC within normal limits today. -appreciate pulm recs Allergic rhinitis Continue home loratidine Code: Full DVT prophylaxis: SCDs, encourage ambulation, low risk Disposition: MedSurg with telemetry Supervising Physician Co-Signing Physician Notes Resident Physician Supervision Note: I independently interviewed and examined the patient and verified the andrews history and physical, reviewed labs and image studies, discussed the case with the resident Dr. Valladares and agree with the findings and care plan. Subjective Mr. Arnett states he feels well today. Denies FARNSWORTH, cough, chest pain, SOB, N/V, diarrhea, constipation, hand or leg swelling. Review of Systems Review of Systems: All systems reviewed & are unremarkable except as noted in HPI & below Physical Exam Physical Exam: General: Alert, oriented. No acute distress HEENT: NC/AT, PERRLA, EOMI, oropharynx moist. Chest: Nontender to palpation. CV: RRR, Normal s1, s2. No murmurs appreciated Resp: Breath sounds clear bilaterally, no increased effort of breathing. Abdomen: Soft, nontender, nondistended. No guarding. No organomegaly appreciated. Extremities: No edema in lower extremities bilaterally. Results & Data Vital Signs (Past 12 Hours) Vital Signs Temp Pulse Pulse Resp BP Pulse Ox 10/02/18 07:21 61 10/02/18 07:08 36.8 C 67 18 132/70 96 10/02/18 06:59 78 18 97 10/02/18 03:58 36.6 C 71 19 150/76 H 94 10/02/18 00:00 75 10/01/18 23:39 36.7 C 65 20 120/74 92 Laboratory Results Laboratory Results - last 24 hr 08/28/19 08/28/19 07:39 07:39 WBC 10.32 RBC 4.46 L Hgb 13.2 L Hct 39.0 L MCV 87.4 MCH 29.6 MCHC 33.8 RDW Std Deviation 43.6 RDW Coeff of Aaron 13.7 Plt Count 191 MPV 9.5 Immature Gran % (Auto) 0.3 Neut % (Auto) 74.7 Lymph % (Auto) 15.8 [place] % (Auto) 7.3 Eos % (Auto) 1.8 Baso % (Auto) 0.1 Immature Gran # (Auto) 0.03 H Neut # (Auto) 7.71 H Lymph # (Auto) 1.63 [place] # (Auto) 0.75 H Eos # (Auto) 0.19 Baso # (Auto) 0.01 Sodium 142 Potassium 3.8 Chloride 109 H Carbon Dioxide 28 Anion Gap 5.0 BUN 14 Creatinine 0.65 Est Cr Clr Drug Dosing 112.4 Est GFR ( Amer) 120.0 Est GFR (Non-Af Amer) 103.5 BUN/Creatinine Ratio 21.9 H Glucose 93 Calcium 8.9 Total Bilirubin 0.5 AST 13 L ALT 16 Alkaline Phosphatase 59 Total Protein 7.0 Albumin 3.3 L Globulin 3.7 Albumin/Globulin Ratio 0.9 Medications Administered Home Medications loratadine 10 mg PO DAILY PRN 05/01/18 [History Confirmed 09/30/18] Active Medications Acetaminophen (Tylenol) 650 mg PO Q4H PRN PRN Reason: Pain or Fever Stop: 10/30/18 23:29 Tobramycin Sulfate 300 mg/ (Syringe) 7.5 mls @ 0.0333 mls/min INH BIDR [facility] Stop: 10/09/18 06:59 Last Admin: 10/02/18 07:18 Dose: 0.0333 mls/min Documented by: Cefepime HCl 2,000 mg/ Syringe 20 mls @ 5 mls/min IV Q8H [facility] Stop: 10/08/18 07:59 Loratadine (Claritin) 10 mg PO DAILY PRN PRN Reason: Allergy Symptoms Stop: 10/30/18 23:29 Ondansetron HCl (Zofran) 4 mg IV Q6H PRN PRN Reason: Nausea Stop: 10/30/18 23:29 Sodium Chloride (Sodium Chlor 7% Neb Solution) 4 ml INH BIDR [facility] Stop: 10/31/18 18:59 Last Admin: 10/02/18 06:59 Dose: 4 ml Documented by: PG Care Time/CCT Total # of Minutes Spent Total Time Spent with Patient: Total time spent is greater than 50% in coordination of care (as documented) at patient's floor/unit and/or counseling patient: Resident Activity Tracking Resident Involvement: Resident Care Provided Care Provided: Adult Hospital Medicine
[2018-10-02] MEDS ORDERED: VANCOMYCIN TROUGH ONE (13:30)
--- NOTE | 2018-10-02 15:28 | Progress Note ---
DATE: 10/02/2018 Chart reviewed and the patient examined. HISTORY OF PRESENT ILLNESS: A 62-year-old with fairly severe and diffuse chronic bronchiectasis and a cavitary process involving the right upper lobe was admitted on the evening of outpatient elective fiberoptic bronchoscopy. The patient has extensive bronchiectasis, the reasons are not totally clear, although he does have significant secondary exposure to smoke and apparently a family history of "pulmonary disease without a definitive diagnosis." He did develop chills on the evening of bronchoscopy and was admitted. Dr. Marco Solis saw patient in consultation on 10/01/2018, felt this was more an exacerbation of his bronchiectasis rather than pneumonitis. IV Cefepime was continued and vancomycin discontinued. He recommended inhaled tobramycin 14 days on and 14 days off to see how this would be tolerated. Additional serology check with the patient's immune status and HIV status was sent and also checking for genetic mutations for a CFTR diagnosis. Currently, the patient feels very well and wishes to go home. Denies dyspnea, pleuritic pain and has been afebrile since his inpatient stay. PHYSICAL EXAMINATION: VITAL SIGNS: Blood pressure 119/76, pulse 67 and regular, respiratory rate 18, temperature 36.6. SKIN: Without lesion. HEENT: Atraumatic, normocephalic, PERRLA, EOMI. Conjunctivae pink. Sclerae nonicteric. Fundi benign. Tympanic membranes within normal limits. Pharyngeal exam intact. NECK: Neck veins are not distended at 45 degrees. No evidence of adenopathy in the supra or infraclavicular areas. LUNGS: Distant P and A. CARDIAC: Regular rhythm. No murmurs or gallops. ABDOMEN: Soft, scaphoid. EXTREMITIES: No pedal edema, clubbing, cyanosis. NEUROLOGIC: Intact. No lateralizing signs. LABORATORY DATA: Chest x-ray on admission showed no acute process, mild emphysematous changes and most recent CT scan prior to admission showed a right upper lobe cavitary process, unchanged in size with a thickened wall to the cavity, perhaps additional fluid present in that cavity compared to the previous CT scanning. Current white count 10,000, H and H 13.2 and 39.0. Right upper lobe bronchial washings are growing gram negative bacilli suspected to be Pseudomonas aeruginosa, important to note that he did grow out Shewanella Putrefaciens in 02/2008 from the sputum. Sensitivities are pending. OVERALL ASSESSMENT: A 62-year-old with chronic bronchiectasis and significant secondary smoke exposure with a stable but persistent right upper lobe cavitary process and chronic colonization with a gram negative, specifically Pseudomonas aeruginosa, was febrile the night of his bronchoscopic evaluation. I agree with the inhaled tobramycin treatment plan of 14 days on and 14 days off and arrangements were to be made for securing the inhaled tobramycin as an outpatient. Would discharge the patient in the morning and hopefully will have a sensitivity pattern back to the Pseudomonas aeruginosa and strongly suspect a resistant pattern at this point in time. We will discuss further with primary hospitalist service tomorrow on the day of discharge. JANE
[2018-10-02] MEDS: CEFEPIME 2,000 MG in SYRINGE 7.5 ML IV SCH (17:56)
[2018-10-03] MEDS ORDERED: TOBRAMYCIN SULFATE 1,200 MG VIAL INH SCH
[2018-10-03] MEDS: CEFEPIME 2,000 MG in SYRINGE 7.5 ML IV SCH ×2 (01:37→10:43)
[2018-10-03] MEDS: TOBRAMYCIN SULFATE 300 MG in SYRINGE 0 ML INH SCH (07:15)
[2018-10-03] MEDS: SODIUM CHLOR 7% 4 ML NEB INH SCH (07:16)
[2018-10-03 07:32] LABS: Basophils # (auto) 0.02 K/uL (0-0.2); Basophils % (auto) 0.2 %; Eosinophils # (auto) 0.23 K/uL (0-0.5); Eosinophils % (auto) 2.5 %; Hematocrit (blood only) 39.8 % (42-52); Hemoglobin 13.6 g/dL (14.0-18.0); Immature Granulocytes # (auto) 0.02 K/uL (0.00-0.02); Immature Granulocytes % (auto) 0.2 %; Lymphocytes # (auto) 1.12 K/uL (1.2-3.4); Lymphocytes % (auto) 12.2 %; Mean Corpuscular Hemoglobin 29.9 pg (25-34); Mean Corpuscular Hgb Conc 34.2 g/dL (32-36); Mean Corpuscular Volume 87.5 fL (80-100); Mean Platelet Volume 9.2 fL (7.4-10.4); Monocytes # (auto) 0.82 K/uL (0.11-0.59); Neutrophils # (auto) 6.94 K/uL (1.4-6.5); Neutrophils % (auto) 75.9 %; Platelet Count 194 K/uL (130-400); RDW Coefficient of Variation 13.5 % (11.5-14.5); RDW Standard Deviation 43.3 fL (36.4-46.3); Red Blood Count 4.55 M/uL (4.7-6.1); White Blood Count 9.15 K/uL (4.8-10.8)
[2018-10-03 08:10] LABS: Albumin Level 3.3 gm/dl (3.4-5.0); BUN Creatinine Ratio 17.2 (10-20); Est GFR (African American) 111.9; Est GFR (Non-African American) 96.6; Potassium 3.9 mmol/L (3.5-5.1)
[2018-10-03 08:13] LABS: Albumin Globulin Ratio 0.9 (0.9-2); Bilirubin,Total 0.5 mg/dl (0.2-1); Globulin 3.8 gm/dl (2.5-4.0); Total Protein 7.1 gm/dl (6.4-8.2)
--- NOTE | 2018-10-03 11:43 | Progress Note ---
DATE: 10/03/2018 Chart reviewed. Patient examined. SUBJECTIVE: The patient feels well, minimal sputum production and would like to go home, tolerating medication including inhaled Torres without incident. PHYSICAL EXAMINATION: VITAL SIGNS: Blood pressure 115/71, pulse 64 and regular, respiratory rate 18, temperature 36.9, O2 sat 94% on room air. SKIN: Without lesion. HEENT: Atraumatic, normocephalic, PERRLA, EOMI. LUNGS: Distant P and A. CARDIAC: Unchanged. ABDOMEN: Soft. EXTREMITIES: No pedal edema, clubbing or cyanosis. NEUROLOGICAL: Intact. LABORATORY DATA: White count has normalized. H&H 13.6 and 39.8. He is afebrile. The bronch washings did grow out Pseudomonas aeruginosa and sensitivities suggest he remains sensitive both to IV cefepime, which he is receiving and levofloxacin as well as tobramycin. Chronic bronchiectasis uncertain etiology with CTFR screen pending. Would discharge today on vigorous pulmonary toilet and inhaled Torres (tobramycin) b.i.d. for 2 weeks, then 14 days off and will continue that cycle for now. In addition, would convert him to oral Levaquin 500 mg daily and will determine length of treatment after visitation in our clinic on Sunday where I would be happy to see him in the outpatient setting.
[2018-10-03] MEDS ORDERED: VANCOMYCIN TROUGH ONE (13:30)
[2018-10-03] MEDS ORDERED: TOBRAMYCIN CONSULT ACTIVE PRN (13:45)
--- NOTE | 2018-10-03 14:03 | Family Medicine Progress Note ---
Date of Service October 03, 2018 Results & Data Vital Signs (Past 12 Hours) Vital Signs Temp Pulse Pulse Resp BP Pulse Ox 10/03/18 11:43 36.7 C 79 18 123/78 95 10/03/18 07:33 64 10/03/18 07:21 63 18 94 10/03/18 06:56 36.9 C 63 20 115/71 94 10/03/18 03:46 36.8 C 71 18 107/64 94 PG Care Time/CCT Total # of Minutes Spent Total Time Spent with Patient: Total time spent is greater than 50% in coordination of care (as documented) at patient's floor/unit and/or counseling patient:
--- NOTE | 2018-10-03 14:04 | Discharge Summary ---
Date of Service October 03, 2018 Admission HPI Per Admitting Provider 62-year-old male with history of cavitary Pseudomonas pneumonia, hyperlipidemia, ascending aorta dilation, allergic rhinitis, inguinal hernia, BPH presents with fever, chills, nausea, vomiting status post bronchoscopy with bronchoalveolar lavage and transbronchial biopsy today. Reports after anesthesia he woke up with chills and felt tired afterwards he had some cereal and applesauce which he vomited. His sister took his temperature which was 102.6. He tried drinking some water because he was really thirsty but was unable to keep that down as well so he returned to the emergency room as instructed for concern of any fever postprocedure. At time of evaluation he reports improvement in chills but continues to feel hot. He is not short of breath at baseline and only becomes short of breath when he goes up a flight of labs which is his baseline at this point. Denies any headache, lightheadedness, chest pain, abdominal pain, constipation, diarrhea dysuria, hematuria, hematochezia, melena. Denies ever smoking tobacco. Occasionally uses marijuana and social alcohol use. EXTENSIVE HISTORY PER CHART REVIEW: Today: had fiberoptic bronchoscopy with bronchoalveolar lavage with and without transbronchial biopsy. Per note: Right upper lobe cavitary pneumonia with thickened cavity (the cavity size has not changed) and other micronodular opacities involving the right upper lobe. Suspect recurrent pseudomonas infection. History per pulmonology note from 09/30/18: 08/28/2018 evaluated by pulmonology for abnormal CT the chest with multiple cavitary lesion. Biopsy by Dr. Hyde demonstrated Pseudomonas. He was instructed to continue follow-up with Infectious Disease. CT of the chest to be repeated in 3 months with follow-up in the office. 08/01/2018: CT of the chest without contrast obtained due to history of pulmonary nodule with cavitary lesion. Slight increase in wall thickness of a cavitary lesion right pulmonary apex. Maximum dimension is 1.7 cm which is essentially unchanged from the prior study. Diffuse parenchymal nodularity is stable with no significant interval change. Scattered regions of peribronchial thickening. Unchanged minimal basilar nodularity. Right middle lobe nodular density has developed currently measuring 1 cm. Additional anterior right middle lobe nodule has remained stable. Mediastinal adenopathy is remain stable. The patient was referred to thoracic surgery at his last appointment and taken to the operating room by Dr. Hyde on 05/10/2018 for bronchoscopy. Fungal and AFB smears are negative. Routine cultures grew out Pseudomonas resistant to Cipro and intermediate to Levaquin. He has been evaluated by Dr. Abebe in Infectious Disease on 05/17/2018. Recommendation for treatment is IV antibiotics of cefepime 1 gram twice daily for total of 14 days to start once insurance approval is obtained. 04/18/2018: CT of the chest without contrast was obtained and continues to demonstrate tree-in-bud nodules scattered throughout the lungs with multiple cavitary nodules, including a 1.9 x 1.2 cm right apical cavitary nodule. There is slight decrease in size since CT of 03/01/2018. The majority of nodules are unchanged with a few improved and at least 1 has developed. There is interval improvement noted in mediastinal lymphadenopathy. 04/05/2018: Fungitell and serum Aspergillus laboratory testing was obtained and were negative. PFT 04/05/2018: FVC: 4.79/91 % (2 PERCENT CHANGE), FEV1: 3.82/72 % (NO CHANGE), FEV1/FVC: 79 %/80 % (NO CHANGE), 25-75 %: 3.79/40 % (NO CHANGE), RV: 2.56/175 %, T.09/124 %, RV/T %/132 %, DLCO: 106 %, dL/VA: 109 % 03/05/2018: Extensive laboratory testing to include vasculitis panel, tuberculosis serology, cryptococcal antigens, Aspergillus antibodies, CBC with diff, CMP, PT/PTT/INR, blood culture was obtained. The only abnormalities noted were ESR of 45 and CRP of 1.05. The patient presented acutely to his PCP on 01/21/2018 with complaints of cough and fever for approximately 1 week. A chest x-ray was obtained on 01/21/2018 and demonstrated multifocal irregular nodular opacities in the right apex and lingula. The patient was treated with Levaquin 500 milligrams x7 days for community-acquired pneumonia. A repeat chest x-ray was obtained 02/13/2018 that was unchanged from previous. A follow-up chest CT without IV contrast was obtained on 03/04/2018 that demonstrated extensive/miliary nodularity throughout both lungs some of which demonstrate a tree-in-bud configuration. The largest nodules demonstrate central cavitation. PFT 07/11/2010: FVC: 4.99/97 % (2 percent change), FEV1: 3.40/84 % (3 percent change), FEV1/FVC: 68 %/87 % (2 percent change), 25-75 %: 2.17/57 % (5 percent change). This was read by Dr. Shirley as mild obstruction with no improvement in flow after bronchodilator with normal volumes. Admission Exam Per Admitting Provider General: In NAD Neuro: A&O x 4 HEENT: dry mucous membranes Pulm: CTAB equal breath sounds bilaterally CV: RRR, no m/r/g Abdomen:+BS, no TTP in all quadrants, non-distended LE: no LE edema, no calf TTP Principal Diagnosis Bronchiectasis Discharge Exam General: Alert, oriented. No acute distress HEENT: NC/AT, PERRLA, EOMI, oropharynx moist. Chest: Nontender to palpation. CV: RRR, Normal s1, s2. No murmurs appreciated Resp: Breath sounds with some coarseness bilaterally, no increased effort of breathing. Abdomen: Soft, nontender, nondistended. No guarding. No organomegaly appreciated. Extremities: No edema in lower extremities bilaterally. Discharge Data Allergies Allergy/AdvReac Type Severity Reaction Status Date / Time thimerosal Allergy Mild Redness of Verified 09/30/18 10:14 Skin Consultations 09/30/18 21:00 ED Decision to Admit Stat 09/30/18 23:30 Consult Pulmonology Routine Hospital Course (1) Bronchiectasis: 62-year-old male with history of cavitary Pseudomonas pneumonia, hyperlipidemia, ascending aorta dilation, allergic rhinitis, inguinal hernia, BPH who presented with fever, chills, nausea, vomiting status post bronchoscopy with bronchoalveolar lavage and transbronchial biopsy. Admitted on Sep 30, 2018 and discharged on Oct 03, 2018. Sepsis in the setting of cavitary pseudomonal pneumonia and recent bronchoscopy with biopsy and bronchoalveolar lavage -gram neg psuedomonas rods growing on recent bronch specimen- Intermediate sensitivity to ceftazidime but susceptible to Levaquin -Was treated with IV Cefepime for about 2 days (3 doses) and tobramycin nebs. -Discharged on 12 days of Levaquin 500mg daily and Tobramycin nebulizers for 13 more days. Pt given 2 doses of tobramycin for use at home from the hospital on discharge as it would be another day before [facility] had the Tobramycin for him. -workup in place to determine underlying causes per pulm-currently neg CMV, HSV, Aspergillus. CF testing and HIV pending. -WBC within normal limits on discharge -followup with pulmonology scheduled for Oct 10 after discharge. Allergic rhinitis Continue home loratidine (2) Sepsis: (3) Allergic rhinitis: Total Time Total Time Spent Total Time Spent (In Minutes): 60 Discharge Plan Discharge Items Patient Disposition: Home - Self-Care Reason For Visit: SEPSIS IN THE SETTING OF CHRONIC PNA/RECENT BRONCH Discharge Diagnosis: Bronchiectasis Discharge Goals: Decrease discomfort and Improve function Activity: Per 'Additional Instructions' section Non-emergency contact: Primary Care Provider and Systems Developer Call non-emergency contact if: your symptoms worsen and you have a fever Follow-up/Referrals: Rock Vázquez PA-C [Physician Paper Making Machine Operator] - 10/10/18 10:00 am (Please, follow up at [facility] Pulmonology Office with Saurav Vázquez PA-C on October 10 at 10:00 am. *The office is located in [address] of [facility]. This is the big building next to this [facility]. If you need to change this appointment, call the office at [phone].) Sravani Spangler MD [Primary Care Provider] - 10/14/18 3:00 pm (Please, follow up at Dr. Spangler's office with her clinical education assistant, Rochelle Elam PA-C, on SundayOctober 14 at 3:00 pm. *If you n eed to change this appointment, call the office at [phone]. MR. RIVERO, THE TOBRAMYCIN INHALATION SOLUTION SHOULD BE READY FOR YOU TO NUTTER UP AT THE [facility] ON SUNDAY. PLEASE, CALL ME IF THERE ARE ANY PROBLEMS WITH THIS. THANK YOU, AALIYAH GRANADOS RN [phone]) Diet: Regular Addtl Provider Instructions: Mr. Rivero, you were admitted because you developed a fever after a bronchoscop y. You were treated with the antibiotics IV Cefepime and Tobramycin for what we believe is a chronic infection with Pseudomonas. You are being discharged with Levaquin and Tobramycin. -Please continue taking the Tobramycin medication at home for the next 13 days (first dose tonight and the second tomorrow). You are being discharged with some Tobramycin for use at home before picking it up at the pharmacy. However, you will need to picking table worker your prescription from the pharmacy tomorrow as it is not available there today. Your last day to take the tobramycin should be Oct 15, 2018. -Please take the Levaquin as directed. It is being used as an oral replacement to the Cefepime you received in the hospital at home. -Please follow-up with your unit leader on October 10, 2018 and your PCP on October 14, 2018. -Should you develop a fever once more after discharge, please seek emergent medical care. -It was truly a pleasure taking care of you during your stay here! Prescriptions: New levofloxacin [Levaquin] 500 mg tablet 500 mg PO DAILY 12 Days Qty: 12 RF: 0 Continued loratadine 10 mg Tablet 10 mg PO DAILY PRN (Reason: Allergy Symptoms) RF: 0 Stand-Alone Forms: My [facility] Discharge Orders: Discharge Order (Routine); Ordered 10/03/18 Ordered By: Nicci Valladares Admission Data Admit Date/Time: 09/30/18 22:08 Attending Provider: Sarita Mejia Admit Provider: Carmen Rocha Primary Care Provider: Sravani Spangler Other Providers: Carmen Rocha ; Marco Jay Service: Telemetry Medical Other Interventions: Discharge Summary Assessment (RN) Last Done: 10/03/18 14:23 DC Date/Time DO NOT enter until pt leaves facility: 10/03/18 16:06 Supervising Physician Co-Signing Physician Notes Resident Physician Supervision Note: I independently interviewed and examined the patient and verified the andrews history and physical, reviewed labs and image studies, discussed the case with the resident Dr. Valladares and agree with the findings and care plan. Time spent in discharge 35 min Resident Activity Tracking Resident Involvement: Resident Care Provided Care Provided: Adult Hospital Medicine
[2018-10-03] MEDS ORDERED: TOBRAMYCIN SULFATE 300 MG in SYRINGE 0 ML INH SCH (19:00)
[2018-10-08 13:17] LABS: HIV 1 RNA PCR Copies/ML <20 Copies/mL; HIV-1 RNA Log Copies/mL <1.30 Log cps/mL; IgG Serum 931 mg/dL (600-1540); Immunoglobulin G1 413 mg/dL (382-929); Immunoglobulin G2 325 mg/dL (241-700); Immunoglobulin G3 63 mg/dL (22-178); Immunoglobulin G4 42.8 mg/dL (4.0-86.0); Immunoglobulin IgE <2 KU/L (<115)
== END 2018-10-03 16:06 | disposition home or self-care (01) | DRG 871 ==
LOC: ED 19:53 → 2N 22:08 → SUATTDRO 22:08 → 2N 23:14 → 2W 23:59